=== PATIENT | male | born 1980 | race Caucasian/White ===

== ENCOUNTER 2023-08-08 11:21 | Emergency (ER) | payer MEDICARE, MEDICAID, SELFPAY ==
[2023-08-08 11:27] VITALS: BP 109/69; PULSE 110; RESP 22; TEMP 36.3; O2SAT 95
--- NOTE | 2023-08-08 11:30 | ED_ITS ---
HPI - General Adult General Chief complaint: Upper Respiratory Infection Stated complaint: SHORTNESS OF BREATH Time Seen by Provider: 08/08/23 11:30 Source: patient and caregiver Mode of arrival: walk-in History of Present Illness HPI narrative: This is a 43-year-old male special-needs patient here with his caregiver from his facility for evaluation of cough runny nose not feeling good. He's not had vomiting and diarrhea. He lives in a retirement and his lab been a lot of viral illnesses there according to the caregiver. They just don't think he is acting himself. They don't know if he is running a fever. It is notany skin rashes. They said he was up coughing a lot last night. To the caregiver's knowledge she's not had Covid previously. Related Data Home Medications Medication Instructions Recorded Confirmed acetaminophen 325 mg tablet 650 mg PO Q6H PRN fever or pain 08/08/23 08/08/23 bisacodyl 10 mg rectal suppository 10 mg MT DAILY PRN constipation 08/08/23 08/08/23 cetirizine 10 mg tablet 10 mg PO DAILY 08/08/23 08/08/23 cholecalciferol (vitamin D3) 50 2,000 unit PO DAILY 08/08/23 08/08/23 mcg (2,000 unit) capsule (D3-2000) furosemide 20 mg tablet 20 mg PO DAILY 08/08/23 08/08/23 lactulose 10 gram/15 mL oral 30 ml PO BID 08/08/23 08/08/23 solution levothyroxine 125 mcg tablet 125 mcg PO DAILY 08/08/23 08/08/23 oxcarbazepine 300 mg tablet 300 mg PO BID 08/08/23 08/08/23 pantoprazole 40 mg tablet,delayed 40 mg PO DAILY 08/08/23 08/08/23 release quetiapine 200 mg tablet 200 mg PO BID 08/08/23 08/08/23 quetiapine 400 mg tablet 400 mg PO DAILY 08/08/23 08/08/23 risperidone 0.5 mg tablet 0.5 mg PO DAILY 08/08/23 08/08/23 risperidone 1 mg tablet 1 mg PO TID 08/08/23 08/08/23 Allergies Allergy/AdvReac Type Severity Reaction Status Date / Time No Known Drug Allergies Allergy Verified 08/08/23 11:46 Exam Narrative Exam Narrative: got his with his caregiver.. His caregiver is the historian. Hegot very well. Constitutional his vital signs show mild tachycardia. He is afebrile. Blood pressure normal 109/69. His skin color is good he is warm and dry not pale or diaphoretic or clammy. Emanation extremity shows no soft tissue infection of skin ecchymosis or bruising. He doesn't seem to have any abdominal pain. There is clear runny nose otherwise HEENT examination is normal. His back and chest examination shows no retractions no severe cough or evidence of dyspnea. He was quite restless during examination with his MR. Medical Decision Making MDM Narrative Medical decision making narrative: patient's Covid test is negative. Chest x-ray shows no acute inflammatory or infectious process. However the urinalysis is consistent with a urine infection. His caregiver believes but does not have any specifics, that he's had urinary tract infection before advised that his provider at the facility consider urology evaluation if in fact he's had multiple urinary tract infections. At this time we'll start him on Rocephin parenterally one dose here and then Cipro. The caregiver says he's very good at taking medicines. He is instructed to return should he worsen. He is to take plenty of extra fluids Discharge Plan Discharge Chief Complaint: Upper Respiratory Infection Clinical Impression: Urinary tract infection Patient Disposition: Home, Self-Care Time of Disposition Decision: 13:26 Prescriptions / Home Meds: No Action bisacodyl 10 mg suppository 10 mg MT DAILY PRN (Reason: constipation) levothyroxine 125 mcg tablet 125 mcg PO DAILY furosemide 20 mg tablet 20 mg PO DAILY pantoprazole 40 mg tablet,delayed release (DR/EC) 40 mg PO DAILY cholecalciferol (vitamin D3) [D3-2000] 50 mcg (2,000 unit) capsule 2,000 unit PO DAILY risperidone 1 mg tablet 1 mg PO TID quetiapine 200 mg tablet 200 mg PO BID oxcarbazepine 300 mg tablet 300 mg PO BID risperidone 0.5 mg tablet 0.5 mg PO DAILY Rx Instructions: takes daily at noon cetirizine 10 mg tablet 10 mg PO DAILY quetiapine 400 mg tablet 400 mg PO DAILY Rx Instructions: takes at bedtime lactulose 10 gram/15 mL solution 30 ml PO BID acetaminophen 325 mg tablet 650 mg PO Q6H PRN (Reason: fever or pain) Additional Instructions: Cipro/take plenty of extra fluids. Recheck by provider within forty-eight seventy-two hours/return here for any problems Stand Alone Forms: Portal Instructions Referrals: FELIPA ESPAÑA [Primary Care Provider] - 1 week
--- NOTE | 2023-08-08 11:31 | XR_ITS ---
The [address] [address] Patient Name: RIGOBERTO BAKER MRN: [id number] date: 1980 Sex: M Assigned Patient Location: ER Current Patient Location: ED.MAIN Accession/Order Number: [id number] Exam Date: 08/08/2023 11:52 Report Date: 08/08/2023 13:13 At the request of: JASON CRUZ Procedure: XR chest 1V EXAM: XR chest 1V INDICATION: cough. COMPARISON: Chest radiograph 05/30/2020 TECHNIQUE: Single frontal view of the chest FINDINGS: Normal cardiomediastinal contours. Low lung volumes with crowding of the central pulmonary vasculature. No acute infiltrative process. Right lung. Surgical sutures noted. No pleural effusion or pneumothorax. Stable sclerotic lesion in the proximal right humerus. XR/XR chest 1V IMPRESSION: No acute cardiopulmonary process. Electronically authenticated by: ZAK IRENE Date: 08/08/2023 13:13
[2023-08-08 11:55] LABS: SARS-CoV-2 Ag NEGATIVE (NEGATIVE)
[2023-08-08 12:24] LABS: Bilirubin Urine NEGATIVE (NEGATIVE); Blood Urine NEGATIVE (NEGATIVE); Clarity Urine CLEAR (CLEAR); Color Urine LT. YELLOW (YELLOW); Glucose Urine UA NEGATIVE (NEGATIVE); Ketones Urine NEGATIVE (NEGATIVE); Leukocyte Esterase Urine LARGE (NEGATIVE); Nitrite Urine POSITIVE (NEGATIVE); Protein Urine NEGATIVE (NEG/TRACE); Specific Gravity Urine 1.015 (1.005-1.025); Urobilinogen Urine 0.2 EU/dL (0.2-1.0)
[2023-08-08 12:33] LABS: Bacteria Urine LARGE #/HPF (NONE SEEN); RBC Urine NONE SEEN #/HPF (0-2); WBC Urine 20-50 #/HPF (NONE SEEN)
[2023-08-08 12:34] LABS: Mucus Urine NONE SEEN (NONE SEEN); Squamous Epithelial Cell Urine FEW #/LPF (NONE/RARE)
[2023-08-08] MEDS: CEFTRIAXONE 1,000 MG, LIDOCAINE HCL/PF 2.1 ML IM (13:47)
[2023-08-09 15:07] LABS: SARS-CoV-2 NAA NOT DETECTED (NOT DETECTE)
== END 2023-08-08 14:04 | disposition home or self-care (01) ==
PROVIDERS: Emergency Provider Emergency Medicine Emergency Medical Services; PCP Nurse Practitioner
DX: N39.0 Urinary tract infection, site not specified (principal); Z20.822 Contact with and (suspected) exposure to COVID-19; Z79.899 Other long term (current) drug therapy; Z79.890 Hormone replacement therapy
CPT/HCPCS: 71045; 81001; 87635; 87811; 96372; 99285

== ENCOUNTER 2023-09-15 18:17 | Emergency (ER) | payer MEDICARE, MEDICAID, SELFPAY ==
[2023-09-15 18:22] VITALS: BP 107/53; PULSE 85; RESP 24; TEMP 36.9; O2SAT 100
--- NOTE | 2023-09-15 19:37 | ED_ITS ---
HPI - Male Genitourinary General Chief complaint: Urogenital-Male Stated complaint: UTI BLOOD Time Seen by Provider: 09/15/23 18:55 Source: patient Mode of arrival: walk-in Limitations: language barrier History of Present Illness HPI Narrative: Patient is a 43-year-old male who presents to the emergency department with his caregiver for the evaluation of hematuria. Patient has Down syndrome. He has had 2 previous urinary tract infections this year. He wears a depends chronically. He is nonverbal. He has not had any fevers or vomiting. Caregiver noted that he passed a small piece of red tissue that he believed was a blood clot, although the staff at his senior living thought it may be a small kidney stone. Related Data Home Medications Medication Instructions Recorded Confirmed acetaminophen 325 mg tablet 650 mg PO Q6H PRN fever or pain 08/08/23 08/08/23 bisacodyl 10 mg rectal suppository 10 mg IA DAILY PRN constipation 08/08/23 08/08/23 cetirizine 10 mg tablet 10 mg PO DAILY 08/08/23 08/08/23 cholecalciferol (vitamin D3) 50 2,000 unit PO DAILY 08/08/23 08/08/23 mcg (2,000 unit) capsule (D3-2000) furosemide 20 mg tablet 20 mg PO DAILY 08/08/23 08/08/23 lactulose 10 gram/15 mL oral 30 ml PO BID 08/08/23 08/08/23 solution levothyroxine 125 mcg tablet 125 mcg PO DAILY 08/08/23 08/08/23 oxcarbazepine 300 mg tablet 300 mg PO BID 08/08/23 08/08/23 pantoprazole 40 mg tablet,delayed 40 mg PO DAILY 08/08/23 08/08/23 release quetiapine 200 mg tablet 200 mg PO BID 08/08/23 08/08/23 quetiapine 400 mg tablet 400 mg PO DAILY 08/08/23 08/08/23 risperidone 0.5 mg tablet 0.5 mg PO DAILY 08/08/23 08/08/23 risperidone 1 mg tablet 1 mg PO TID 08/08/23 08/08/23 Previous Rx's Medication Instructions Recorded cephalexin 500 mg capsule 500 mg PO Q8H 7 days #21 caps 09/15/23 Allergies Allergy/AdvReac Type Severity Reaction Status Date / Time No Known Drug Allergies Allergy Verified 08/08/23 11:46 Review of Systems ROS Constitutional Denies: fever or chills Ears, nose, mouth, and throat Denies: throat pain Cardiovascular Denies: chest pain Respiratory Denies: shortness of breath or cough Gastrointestinal Denies: abdominal pain, nausea or vomiting Genitourinary Reports: painful urination and blood in urine Integumentary/Breast Denies: rash Allergic/Immunologic Denies: hives PFSH [facility] Social History Smoking status: Never smoker Exam Narrative Exam Narrative: Gen.: Awake, alert, in no distress Head: Normocephalic, atraumatic ENT: Moist mucous membranes Respiratory: No respiratory distress Gastrointestinal: Abdomen is soft, nondistended and nontender to palpation Extremities: Moves extremities equally Psych: Normal mood and affect, developmentally disabled, nonverbal Neuro: No focal neuro deficit Skin: Warm, dry, intact Constitutional Vital Signs, click to edit/add: Last Vital Signs Temp 98.5 F 09/15/23 18:22 Pulse 85 09/15/23 18:22 Resp 24 09/15/23 18:22 BP 107/53 09/15/23 18:22 Pulse Ox 100 09/15/23 18:22 O2 Del Method Room Air 09/15/23 18:22 Course Vital Signs Vital signs: Vital Signs Temperature 98.5 F 09/15/23 18:22 Pulse Rate 85 09/15/23 18:22 Respiratory Rate 24 09/15/23 18:22 Blood Pressure 107/53 09/15/23 18:22 Pulse Oximetry 100 09/15/23 18:22 Oxygen Delivery Method Room Air 09/15/23 18:22 Temperature 98.5 F 09/15/23 18:22 Pulse Rate 85 09/15/23 18:22 Respiratory Rate 24 09/15/23 18:22 Blood Pressure 107/53 09/15/23 18:22 Pulse Oximetry 100 09/15/23 18:22 Oxygen Delivery Method Room Air 09/15/23 18:22 MDM - Male Genitourinary MDM Narrative Medical decision making narrative: Straight catheterization was attempted, we were unable to get urine with this so a urine bag was applied, urine specimen shows urinary tract infection and labs are within normal limits. Patient with stable vital signs. Leather Repairer was made aware that even if the patient did pass a small kidney stone, he is lab studies are within normal limits with no evidence of acute renal failure. He is treated for UTI, referred to urology. Return to the ER if symptoms change or worsen. Leather Repairer is in agreement with treatment plan. Medical Records Attestation: I reviewed the patient's medical records. Lab Data Attestation: I reviewed the patient's lab results. Labs: Lab Results 09/15/23 09/15/23 Range/Units 20:11 21:09 WBC 7.4 (4.0-11.0) 10^3/uL RBC 3.95 L (4.70-6.10) 10^6/uL Hgb 13.3 L (14.0-18.0) g/dL Hct 39.2 L (42.0-54.0) % MCV 99.2 H (80.0-94.0) fL MCH 33.7 (25.9-34.0) pg MCHC 33.9 (29.9-35.2) g/dL RDW 12.7 (11.0-15.0) % Plt Count 306 (150-450) 10^3/uL MPV 8.3 L (9.5-13.5) fL Neut % (Auto) 69.6 (43.0-75.0) % Lymph % (Auto) 20.7 (20.5-60.0) % [place] % (Auto) 6.9 (1.7-12.0) % Eos % (Auto) 1.5 (0.9-7.0) % Baso % (Auto) 0.9 (0.2-2.0) % Neut # (Auto) 5.1 (1.4-6.5) 10^3/uL Lymph # (Auto) 1.5 (1.2-3.8) 10^3/uL [place] # (Auto) 0.5 (0.3-0.8) 10^3/uL Eos # (Auto) 0.1 (0.0-0.7) 10^3/uL Baso # (Auto) 0.1 (0.0-0.1) 10^3/uL Abs Immat Gran (auto) 0.03 (0.00-0.03) 10^3/uL Imm/Tot Granulo (auto) 0.4 (0.0-0.5) % Sodium 133 L (136-145) mmol/L Potassium 3.9 (3.5-5.1) mmol/L Chloride 96 L (98-107) mmol/L Carbon Dioxide 31.4 (21.0-32.0) mmol/L Anion Gap 9.5 BUN 12.0 (7.0-18.0) mg/dL Creatinine 0.82 (0.70-1.30) mg/dL Est GFR ( Amer) >60 (>=60) Est GFR (Non-Af Amer) >60 (>=60) BUN/Creatinine Ratio 14.6 Glucose 134 H (74-106) mg/dL Calcium 8.7 (8.5-10.1) mg/dL Total Bilirubin 0.2 (0.2-1.0) mg/dL AST 16 (15-37) U/L ALT 11 L (16-63) U/L Alkaline Phosphatase 131 H (46-116) U/L Total Protein 7.2 (6.4-8.2) g/dL Albumin 3.4 (3.4-5.0) g/dL Globulin 3.8 g/dL Albumin/Globulin Ratio 0.9 Urine Color Dk. red (YELLOW) Urine Clarity Clear (CLEAR) Urine pH 7.5 (5.0-9.0) Ur Specific Manning 1.020 (1.005-1.025) Urine Protein >=300 A (NEG/TRACE) mg/dL Urine Glucose (UA) 100 A (NEGATIVE) mg/dL Urine Ketones Trace A (NEGATIVE) mg/dL Urine Occult Blood Large A (NEGATIVE) Urine Nitrite Positive A (NEGATIVE) Urine Bilirubin Negative (NEGATIVE) Urine Urobilinogen 1.0 (0.2-1.0) EU/dL Ur Leukocyte Esterase Small A (NEGATIVE) Urine RBC >100 A (0-2) #/HPF Urine WBC 10-20 A (NONE SEEN) #/HPF Ur Squamous Epith Cells None seen (NONE/RARE) #/LPF Urine Crystals None seen (None Seen) #/HPF Urine Bacteria Moderate A (NONE SEEN) #/HPF Urine Casts None seen (NONE SEEN) #/LPF Urine Mucus None seen (NONE SEEN) Ur Culture Indicated? Yes Discharge Plan Discharge Chief Complaint: Urogenital-Male Clinical Impression: Urinary tract infection Patient Disposition: Home, Self-Care Time of Disposition Decision: 21:29 Condition: Good Prescriptions / Home Meds: New cephalexin 500 mg capsule 500 mg PO Q8H 7 Days Qty: 21 0RF No Action bisacodyl 10 mg suppository 10 mg IA DAILY PRN (Reason: constipation) levothyroxine 125 mcg tablet 125 mcg PO DAILY furosemide 20 mg tablet 20 mg PO DAILY pantoprazole 40 mg tablet,delayed release (DR/EC) 40 mg PO DAILY cholecalciferol (vitamin D3) [D3-2000] 50 mcg (2,000 unit) capsule 2,000 unit PO DAILY risperidone 1 mg tablet 1 mg PO TID quetiapine 200 mg tablet 200 mg PO BID oxcarbazepine 300 mg tablet 300 mg PO BID risperidone 0.5 mg tablet 0.5 mg PO DAILY Rx Instructions: takes daily at noon cetirizine 10 mg tablet 10 mg PO DAILY quetiapine 400 mg tablet 400 mg PO DAILY Rx Instructions: takes at bedtime lactulose 10 gram/15 mL solution 30 ml PO BID acetaminophen 325 mg tablet 650 mg PO Q6H PRN (Reason: fever or pain) Instructions: Urinary Tract Infection in Men (ED) Stand Alone Forms: Portal Instructions Referrals: Selvin Sorensen MD [Physician] - 1 week FELIPA ESPAÑA [Primary Care Provider] - 1 week Discharge Date/Time: 09/15/23 21:55
[2023-09-15 20:20] LABS: Basophils Absolute Auto 0.1 10^3/uL (0.0-0.1); Basophils Percent Auto 0.9 % (0.2-2.0); Eosinophils Absolute Auto 0.1 10^3/uL (0.0-0.7); Eosinophils Percent Auto 1.5 % (0.9-7.0); Hematocrit 39.2 % (42.0-54.0); Hemoglobin 13.3 g/dL (14.0-18.0); Immature Granulocytes Abs Auto 0.03 10^3/uL (0.00-0.03); Immature Granulocytes Pct Auto 0.4 % (0.0-0.5); Lymphocytes Absolute Auto 1.5 10^3/uL (1.2-3.8); Lymphocytes Percent Auto 20.7 % (20.5-60.0); Mean Corpuscular HGB Conc 33.9 g/dL (29.9-35.2); Mean Corpuscular Hemoglobin 33.7 pg (25.9-34.0); Mean Corpuscular Volume 99.2 fL (80.0-94.0); Mean Platelet Volume 8.3 fL (9.5-13.5); Monocytes Absolute Auto 0.5 10^3/uL (0.3-0.8); Monocytes Percent Auto 6.9 % (1.7-12.0); Neutrophils Absolute Auto 5.1 10^3/uL (1.4-6.5); Neutrophils Percent Auto 69.6 % (43.0-75.0); Platelet Count 306 10^3/uL (150-450); Red Blood Count 3.95 10^6/uL (4.70-6.10); Red Cell Distribution Width 12.7 % (11.0-15.0); White Blood Count 7.4 10^3/uL (4.0-11.0)
[2023-09-15 20:31] LABS: Alanine Aminotransferase 11 U/L (16-63); Albumin Globulin Ratio 0.9; Albumin Level 3.4 g/dL (3.4-5.0); Alkaline Phosphatase 131 U/L (46-116); Anion Gap 9.5; Aspartate Amino Transferase 16 U/L (15-37); BUN Creatinine Ratio 14.6; Bilirubin Total 0.2 mg/dL (0.2-1.0); Calcium 8.7 mg/dL (8.5-10.1); Carbon Dioxide 31.4 mmol/L (21.0-32.0); Chloride 96 mmol/L (98-107); Estimated GFR (African America >60 (>=60); Estimated GFR (Non-African Ame >60 (>=60); Globulin 3.8 g/dL; Glucose 134 mg/dL (74-106); Potassium 3.9 mmol/L (3.5-5.1); Sodium 133 mmol/L (136-145); Total Protein 7.2 g/dL (6.4-8.2)
[2023-09-15 21:25] LABS: Bilirubin Urine NEGATIVE (NEGATIVE); Blood Urine LARGE (NEGATIVE); Clarity Urine CLEAR (CLEAR); Color Urine DK. RED (YELLOW); Glucose Urine UA 100 mg/dL (NEGATIVE); Ketones Urine TRACE mg/dL (NEGATIVE); Leukocyte Esterase Urine SMALL (NEGATIVE); Nitrite Urine POSITIVE (NEGATIVE); Protein Urine >=300 mg/dL (NEG/TRACE); pH Urine 7.5 (5.0-9.0)
[2023-09-15 21:26] LABS: Urine Microscopic Indicated YES
[2023-09-15 21:27] LABS: Bacteria Urine MODERATE #/HPF (NONE SEEN); Cast Seen? NONE SEEN #/LPF (NONE SEEN); Crystals Seen? None Seen #/HPF (None Seen); Mucus Urine NONE SEEN (NONE SEEN); RBC Urine >100 #/HPF (0-2); Squamous Epithelial Cell Urine NONE SEEN #/LPF (NONE/RARE); Urine Culture Indicated YES
[2023-09-15] MEDS: CEPHALEXIN 500 MG CAPSULE PO (21:37)
== END 2023-09-15 21:55 | disposition home or self-care (01) ==
PROVIDERS: Physician Assistant; Emergency Provider Internal Medicine; PCP Nurse Practitioner
DX: N39.0 Urinary tract infection, site not specified (principal); Q90.9 Down syndrome, unspecified; Z87.440 Personal history of urinary (tract) infections; Z79.899 Other long term (current) drug therapy
CPT/HCPCS: 36415; 80053; 81001; 85025; 87086; 99283

== ENCOUNTER 2024-03-24 16:40 | Outpatient (OUT) | payer MEDICARE, MEDICAID, SELFPAY ==
[2024-03-26 09:10] LABS: Carbamazepine(Tegretol),S 7.1 ug/mL (4.0-12.0)
[2024-03-30 00:07] LABS: Oxcarbazepine (Trileptal),S 13 ug/mL (10-35)
== END 2024-03-24 16:41 | disposition home or self-care (01) ==
LOC: LAB 16:41
PROVIDERS: PCP Nurse Practitioner; Visit Provider Nurse Practitioner Family
DX: Z51.81 Encounter for therapeutic drug level monitoring (principal)
CPT/HCPCS: 36415; 80156; 80183

== ENCOUNTER 2025-05-24 09:28 | Outpatient (OUT) | payer MEDICARE, MEDICAID, SELFPAY ==
--- OUTSIDE RECORDS SUMMARY | 2025-05-24 09:39 | XMS_ITS | Encounter Summary ---
Author Organization [employer] Sys tem Address [facility] [id number] [address] [place] [address] Care Team Providers Care Web Site Designer Name Role Phone Jyotsna Sewell APRN-WATER POLLUTION SCIENTIST Primary Care Provid er Encounter Details Date Type Department Care Team (Late st Contact Info) Description 05/16/2021 Telephone [facility] [address] [place] [address] [address] Marlene Do CMA Social History Tobacco Use Types Packs/Day Years Used Date Smoking Tobacco: Never Smokeless Tobacco: Never Alcohol Use Standard Drinks/Week Comments Never 0 (1 standard drink = 0.6 oz pur e alcohol) PHQ-2 Answer Date Recorded Total Score 0 05/09/2021 Childcare Answer Date Recorded Childcare Unknown 04/06/2019 Employment Answer Date Recorded Employment Unknown 04/06/2019 Purpose - Life Answer Date Recorded Purpose and direction in life Unknown Sex and Gender Information Value Date Recorded Sex Assigned at Not on file Legal Sex Male 11:26 AM EDT Gender Identity Not on file Sexual Orientation Not on file COVID-19 Exposure Response Date Recorded In the last month, have you been in contact with someone who was confirmed or suspected to have Coronavirus / COVID-19? No / Unsure 05/09/2021 9:03 AM EDT documented as of this encounter Miscellaneous Notes * Telephone Encounter - Marlene Do CMA - 05/16/2021 11:09 AM EDT Pt's caregiver had gian from [email or web address] call, the patient takes a laxative every other day, but has not had a bowel movement in the last 10 to 12 days. Pt uses [facility] in [place]. * Telephone Encounter - MADIHA Orr - 05/16/2021 11:09 AM EDT Please confirm with staff that they are keeping daily log on BMs. Do they think they would be able to do a fleet enema and rectal suppository? Inform to increase Mirlax to 17 grams (1 packet or one scoop) to daily, every AM. * Telephone Encounter - Marlene Do CMA - 05/16/2021 11:09 AM EDT They said yes, but they will need a letter or physical order faxed over to them for documentation. Please send RX for enema and suppository to [facility] in [place]. * Telephone Encounter - MADIHA Orr - 05/16/2021 11:09 AM EDT I faxed order and sent to [place] [facility]. Can you call and clarify if he is taking Lactulose. If sowhat is the dose, frequency. Is it daily or PRN? I have several conflicting orders on MAR, previousmedical records, and GI specialist documentation * Telephone Encounter - Marlene Do CMA - 05/16/2021 11:09 AM EDT Spoke to Shivani, she said they did get orders, but you did not put on there to do Miralax once daily,so they need that sent as well. Pt is not on lactulose. Only the powder. * Telephone Encounter - MADIHA Orr - 05/16/2021 11:09 AM EDT I hand wrote on prescription with other orders. I attached Birgit. The fax was not answering, I putthe fax report and copy of the written order on her desk. I will check again on Thursday to make sureeverything was taken care of. Thank you. * Telephone Encounter - Birgit Vickers MA - 05/16/2021 11:09 AM EDT I refaxed this on Thursday when I was here. * Telephone Encounter - MADIHA Orr - 05/16/2021 11:09 AM EDT Thank you. Just clarifying into response Marlene message documented in this encounter Plan of Treatment Upcoming Encounters Date Type Department Care Team (Late st Contact Info) Description 09/13/2025 4:00 PM EST Office Visit [facility] [address] [place] [address] Solomon Ramirez, TEO-WATER POLLUTION SCIENTIST [address] [place] [address] documented as of this encounter Visit Diagnoses Not on filedocumented in this encounter Additional Health Concerns Infection Onset Date Last Indicated Resolved Time COVID-19 Positive 07/31/2021 07/31/2021 08/21/2021 11:12 PM EDT COVID-19 Rule-Out 08/02/2021 07/31/2021 08/02/2021 11:31 AM EDT Assessment Noted Time PHQ-9 Depression Total Score: 0 05/09/20 9:07 AM EDT A Body Mass Index follow-up plan has been documented for the patient 05/15/2021 3:29 PM EDT documented as of this encounter Care Teams Web Site Designer Relationship Specialty Start Date End Date Jyotsna Sewell APRN-WATER POLLUTION SCIENTIST PCP - General Family Medicine 04/09/21 documented as of this encounter
--- OUTSIDE RECORDS SUMMARY | 2025-05-24 09:39 | XMS_ITS | Encounter Summary ---
Author Organization [employer] Sys tem Address [facility] [id number] [address] [place] [address] Care Team Providers Care Velvet Cutter Name Role Phone Sewell, Jyotsna mIani BRUCE-ENERGY PROJECTS LEAD Primary Care Provid er Encounter Details Date Type Department Care Team (Late Contact Info) Description 08/02/2021 Orders Only [facility] [address] [place] [address] [address] Marlene Do CMA Close exposure to COVID-19 virus Social History Tobacco Use Types Packs/Day Years Used Date Smoking Tobacco: Never Smokeless Tobacco: Never Alcohol Use Standard Drinks/Week Comments Never 0 (1 standard drink = 0.6 oz pur e alcohol) PHQ-2 Answer Date Recorded Total Score 0 07/10/2021 Childcare Answer Date Recorded Childcare Unknown 04/06/2019 [...] or suspected to have Coronavirus / COVID-19? Unable to assess 07/30/2021 9:39 AM EDT documented as of this encounter Plan of Treatment Upcoming Encounters Date Type Department Care Team (Late Contact Info) Description 09/13/2025 4:00 PM EST Office Visit [facility] [address] [place] [address] Solomon Ramirez, SUBGRADE ROLLER OPERATOR-ENERGY PROJECTS LEAD [address] [place] [address] documented as of this encounter Procedures Procedure Name Priority Date/Time Associated Diagnosis Comments SARS COV 2 (COVID-19) STAT 07/31/2021 Close exposure to COVID-19 virus documented in this encounter Results * (ABNORMAL) SARS COV 2 (COVID-19)[Lab Collect] (07/31/2021) EXTERNAL SARS COV 2 Positive(A ) Negative SUNQUEST Swab (NASOPHARYNGEAL ) 07/31/2021 us Jyotsna CLEARY MICROBIOLOGY - GENER AL ORDERABLES Edited Result - Final SUNQUEST documented in this encounter Visit Diagnoses Diagnosis Close exposure to COVID-19 virus documented in this encounter Additional Health Concerns Infection Onset Date Last Indicated Resolved Time COVID-19 Positive 07/31/2021 07/31/2021 08/21/2021 11:12 PM EDT COVID-19 Rule-Out 08/02/2021 07/31/2021 08/02/2021 11:31 AM EDT Assessment Noted Time PHQ-9 Depression Total Score: 0 07/10/20 21 9:10 AM EDT A Body Mass Index follow-up plan has been documented for the patient 08/05/2021 5:58 PM EDT documented as of this encounter Care Teams Velvet Cutter Relationship Specialty Start Date End Date Jyotsna Sewell APRN-CNP PCP - General Family Medicine 04/09/21 documented as of this encounter
--- OUTSIDE RECORDS SUMMARY | 2025-05-24 09:39 | XMS_ITS | Encounter Summary ---
Author Organization [employer] Address [facility] [id number] [address] [place] [address] Care Team Providers Care Gate Tender Name Role Phone Jyotsna Sewell APRN-LOCAL DELIVERY DRIVER Primary Care Provid er Reason for Visit * Reason Onset Date Comments Med Refill 03/22/2025 Encounter Details Date Type Department Care Team (Late st Contact Info) Description 03/22/2025 Refill [facility] [address] [place] [id number] Marah Franklin CMA Social History Tobacco Use Types Packs/Day Years Used Date Smoking Tobacco: Never Smokeless Tobacco: Never Alcohol Use Standard Drinks/Week Comments Never 0 (1 standard drink = 0.6 oz pur e alcohol) PHQ-2 Answer Date Recorded Total Score 0 01/05/2025 Childcare Answer Date Recorded Childcare Unknown 04/06/2019 Employment Answer Date Recorded Employment Unknown 04/06/2019 Hunger Screening Answer Date Recorded Within the past 12 months we worried whether our food would run out before we got money to buy more. Never True 01/05/2025 Within the past 12 months th e food we bought just didn't last and we didn't have money to get more. Never True 01/05/2025 Purpose - Life Answer Date Recorded Purpose and direction in life Unknown Sex and Gender Information Value Date Recorded Sex Assigned at Not on file Legal Sex Male 11:26 AM EDT Gender Identity Not on file Sexual Orientation Not on file documented as of this encounter Plan of Treatment Upcoming Encounters Date Type Department Care Team (Late st Contact Info) Description 09/13/2025 4:00 PM EST Office Visit [facility] [address] [place] [address] Solomon Ramirez, INDUCTION COORDINATION POWER ENGINEER-LOCAL DELIVERY DRIVER [address] [place] [address] documented as of this encounter Visit Diagnoses Not on filedocumented in this encounter Additional Health Concerns Assessment Noted Time PHQ-9 Depression Total Score: 0 01/06/20 25 8:33 AM EDT A Body Mass Index follow-up plan has been documented for the patient 01/05/2025 9:11 AM EDT documented as of this encounter Care Teams Gate Tender Relationship Specialty Start Date End Date Jyotsna Sewell, TEO-LOCAL DELIVERY DRIVER PCP - General Family Medicine 04/09/21 documented as of this encounter
--- OUTSIDE RECORDS SUMMARY | 2025-05-24 09:39 | XMS_ITS | Encounter Summary ---
Author Organization [employer] Sys tem Address [facility] [id number] [address] [place] [address] Care Team Providers Care Lumber Sorter Name Role Phone Jyotsna Sewell APRN-FIXED WING AIRCRAFT CREW CHIEF Primary Care Provid er Encounter Details Date Type Department Care Team (Late st Contact Info) Description 08/02/2021 Telephone [facility] [address] [facility] [place] [address] Marlene Do CMA Social History [...] Telephone Encounter - Marlene Do CMA - 08/02/2021 11:21 AM EDT Tej called over today to see if results were in, as many of the guardians were concerned. I spoke to lab at [facility], and he was positive. I notified staff at [facility], and they will bequarantining the residents for the next 7 to 14 days. documented in this encounter Plan of Treatment Upcoming Encounters Date Type Department Care Team (Late st Contact Info) Description 09/13/2025 4:00 PM EST Office Visit [facility] - Family Medicine [address] [place] [address] Solomon Ramirez, ROCK CRUSHING MACHINE OPERATOR-FIXED WING AIRCRAFT CREW CHIEF [address] , [facility] [address] [place] [address] documented as of this encounter Visit Diagnoses Not on filedocumented in this encounter Additional Health Concerns Infection Onset Date Last Indicated Resolved Time COVID-19 Positive 07/31/2021 07/31/2021 08/21/2021 11:12 PM EDT COVID-19 Rule-Out 08/02/2021 07/31/2021 08/02/2021 11:31 AM EDT Assessment Noted Time PHQ-9 Depression Total Score: 0 07/10/20 9:10 AM EDT A Body Mass Index follow-up plan has been documented for the patient 08/05/2021 5:58 PM EDT documented as of this encounter Care Teams Lumber Sorter Relationship Specialty Start Date End Date Jyotsna Sewell, ROCK CRUSHING MACHINE OPERATOR-FIXED WING AIRCRAFT CREW CHIEF PCP - General Family Medicine 04/09/21 documented as of this encounter
--- OUTSIDE RECORDS SUMMARY | 2025-05-24 09:39 | XMS_ITS | Encounter Summary ---
Author Organization [employer] Sys tem Address [facility] [id number] [address] [place] [address] Care Team Providers Care Content Engineer Name Role Phone Jyotsna Sewell APRN-MERCHANDISE EXECUTIVE Primary Care Provid er Reason for Visit * Reason Comments Med Refill Encounter Details Date Type Department Care Team (Late Contact Info) Description 05/18/2023 Refill [facility] - Family Medicine [address] [place] [address] Jyotsna Sewell APRN-MERCHANDISE EXECUTIVE [address] PM 04/24/25 [place] [phone] Chronic idiopathic constipation Social History Tobacco Use Types Packs/Day Years Used Date Smoking Tobacco: Never Smokeless Tobacco: Never Alcohol Use Standard Drinks/Week Comments Never 0 (1 standard drink = 0.6 oz pur e alcohol) PHQ-2 Answer Date Recorded Total Score 0 04/22/2023 Childcare Answer Date Recorded Childcare Unknown 04/06/2019 [...] Medicine - Family Medicine [address] [place] [address] Solomon Ramirez, SLIP SHEETER-MERCHANDISE EXECUTIVE [address], [address] [place] [address] documented as of this encounter Visit Diagnoses Diagnosis Chronic idiopathic constipation Unspecified constipation documented in this encounter Additional Health Concerns Assessment Noted Time PHQ-9 Depression Total Score: 0 04/22/20 11:44 AM EDT A Body Mass Index follow-up plan has been documented for the patient 04/23/2023 8:43 AM EDT documented as of this encounter Care Teams Content Engineer Relationship Specialty Start Date End Date Jyotsna Sewell, TEO-MERCHANDISE EXECUTIVE PCP - General Family Medicine 04/09/21 documented as of this encounter
--- OUTSIDE RECORDS SUMMARY | 2025-05-24 09:39 | XMS_ITS | Encounter Summary ---
Author Organization [facility] Sys tem Address [facility] [id number] [address] [place] [address] Care Team Providers Care Storage Facility Housekeeper Name Role Phone Jyotsna Sewell Primary Care Provid er Encounter Details Date Type Department Care Team (Late st Contact Info) Description 08/06/2021 Telephone [facility] [address] [facility] [place] [address] Marlene Do CMA Social History [...] Telephone Encounter - Marlene Do CMA - 08/06/2021 10:18 AM EDT ----- Message from MADIHA Orr sent at 08/05/2021 5:58 PM EDT ----- Can you call care provider or Alexa (warehouse receiver- #listed in emergency contact), check on how patient is doing. * Telephone Encounter - Marlene Do CMA - 08/06/2021 10:18 AM EDT Pt has been sleeping and resting often, still has runny nose, but no other symptoms noted. * Telephone Encounter - MADIHA Orr - 08/06/2021 10:18 AM EDT Thank you * Telephone Encounter - Birgit Vickers MA - 08/06/2021 10:18 AM EDT Alexa called and said 94/ 73 right now Pulse 81, and said you wanted to be informed if below 100. * Telephone Encounter - MADIHA Orr - 08/06/2021 10:18 AM EDT Alexa is going to recheck and call the office around 4:30pm, will decide at that time if ER visit is warranted. documented in this encounter Plan of Treatment Upcoming Encounters Date Type Department Care Team (Late st Contact Info) Description 09/13/2025 4:00 PM EST Office Visit [facility] - Family Medicine [address] [place] [address] Solomon Ramirez, RPG DEVELOPER-PACKAGE LINE OPERATOR [address], [place] [id number] documented as of this encounter Visit Diagnoses Not on filedocumented in this encounter Additional Health Concerns Infection Onset Date Last Indicated Resolved Time COVID-19 Positive 07/31/2021 07/31/2021 08/21/2021 11:12 PM EDT Assessment Noted Time PHQ-9 Depression Total Score: 0 07/10/20 9:10 AM EDT A Body Mass Index follow-up plan has been documented for the patient 08/05/2021 5:58 PM EDT documented as of this encounter Care Teams Storage Facility Housekeeper Relationship Specialty Start Date End Date Jyotsna Sewell, RPG DEVELOPER-PACKAGE LINE OPERATOR PCP - General Family Medicine 04/09/21 documented as of this encounter
--- OUTSIDE RECORDS SUMMARY | 2025-05-24 09:39 | XMS_ITS | Encounter Summary ---
Author Organization [employer] Sys tem Address [facility] [id number] [address] [place] [address] Care Team Providers Care Rotary Engraver Name Role Phone Jyotsna Sewell APRN-GRIPPER MACHINE OPERATOR Primary Care Provid er Encounter Details Date Type Department Care Team (Late Contact Info) Description 12/16/2021 Orders Only [facility] [address] [facility] [place] [phone] Marlene Do, ERNESTO Other generalized epilepsy, not intractable, without status epilepticus ([facility]-H[facility]); Down's syndrome Social History Tobacco Use Types Packs/Day Years [...] have Coronavirus / COVID-19? No / Unsure 12/18/2021 4:40 PM EST documented as of this encounter Plan of Treatment Upcoming Encounters Date Type Department Care Team (Late Contact Info) Description 09/13/2025 4:00 PM EST Office Visit [facility] - Family Medicine [address] [place] [address] Solomon Ramirez, TEO-GRIPPER MACHINE OPERATOR [address], [address] [place] [address] documented as of this encounter Procedures Procedure Name Priority Date/Time Associated Diagnosis Comments AMB REFERRAL TO NEUROLOGY Routine 12/16/2021 11:07 AM EST Other generalized epilepsy, not intractable, without status epilepticus (CMS-HCC) Down's syndrome documented in this encounter Results * Ambulatory referral to Neurology (12/16/2021 11:07 AM EST) us Jyotsna CLEARY OUTPATIENT REFERRAL ORDERABLES Final Result MANUALLY TRANSCRIBED RESULTS documented in this encounter Visit Diagnoses Diagnosis Other generalized epilepsy, not intractable, without status epilepticus (CMS-HCC) Down's syndrome documented in this encounter Additional Health Concerns Assessment Noted Time PHQ-9 Depression Total Score: 0 07/10/20 9:10 AM EDT A Body Mass Index follow-up plan has been documented for the patient 12/02/2021 7:46 PM EST documented as of this encounter Care Teams Rotary Engraver Relationship Specialty Start Date End Date Jyotsna Sewell APRN-CNP PCP - General Family Medicine 04/09/21 documented as of this encounter
--- OUTSIDE RECORDS SUMMARY | 2025-05-24 09:39 | XMS_ITS | Encounter Summary ---
Author Organization [employer] Sys tem Address [id number] [address] [place] [address] Care Team Providers Care Trenching Machine Operator Name Role Phone Jyotsna Sewell APRN-COMMUNITY ACTION WORKER Primary Care Provid er Reason for Visit * Reason Comments Med Refill Encounter Details Date Type Department Care Team (Late Contact Info) Description 06/22/2023 Refill [facility] [address] [place] [address] Jyotsna Sewell APRN-COMMUNITY ACTION WORKER [address] 04/24/25 [place] [address] Drug-induced constipation Social History Tobacco Use Types Packs/Day [...] Medicine - Family Medicine [address] [place] [address] Solomon Ramirez, YARDING SUPERVISOR-COMMUNITY ACTION WORKER [address], [address] [place] [address] documented as of this encounter Visit Diagnoses Diagnosis Drug-induced constipation Other constipation documented in this encounter Additional Health Concerns Assessment Noted Time PHQ-9 Depression Total Score: 0 04/22/20 11:44 AM EDT A Body Mass Index follow-up plan has been documented for the patient 04/23/2023 8:43 AM EDT documented as of this encounter Care Teams Trenching Machine Operator Relationship Specialty Start Date End Date Jyotsna Sewell, TEO-COMMUNITY ACTION WORKER PCP - General Family Medicine 04/09/21 documented as of this encounter
--- OUTSIDE RECORDS SUMMARY | 2025-05-24 09:39 | XMS_ITS | Encounter Summary ---
Author Organization [employer] Sys tem Address [facility] [id number] [address] [place] [address] Care Team Providers Care Melter Loader Name Role Phone Jyotsna Sewell Primary Care Provid er Encounter Details Date Type Department Care Team (Late st Contact Info) Description 08/13/2023 Telephone [facility] - Family Medicine [address] [place] [address] Birgit Vickers MA Social History Tobacco Use Types Packs/Day Years Used Date Smoking Tobacco: Never Smokeless Tobacco: Never Alcohol Use Standard Drinks/Week Comments Never 0 (1 standard drink = 0.6 oz pur e alcohol) PHQ-2 Answer Date Recorded Total Score 0 08/13/2023 Childcare Answer Date Recorded Childcare Unknown 04/06/2019 Employment Answer Date Recorded Employment Unknown 04/06/2019 Purpose - Life Answer Date Recorded Purpose and direction in life Unknown Sex and Gender Information Value Date Recorded Sex Assigned at Not on file Legal Sex Male 11:26 AM EDT Gender Identity Not on file Sexual Orientation Not on file documented as of this encounter Miscellaneous Notes * Telephone Encounter - Birgit Vickers MA - 08/13/2023 11:39 AM EDT ----- Message from MADIHA Orr sent at 08/13/2023 11:37 AM EDT ----- He went to [facility] last week. I do not have records. Can we retrieve. documented in this encounter Plan of Treatment Upcoming Encounters Date Type Department Care Team (Late st Contact Info) Description 09/13/2025 4:00 PM EST Office Visit [facility] - Family Medicine [address] [place] [address] Solomon Ramirez, ACOUSTICAL TILE PATTERNMAKER-GROUP SALES COORDINATOR [address], [facility] [address] [place] [address] documented as of this encounter Visit Diagnoses Not on filedocumented in this encounter Additional Health Concerns Assessment Noted Time PHQ-9 Depression Total Score: 0 08/13/20 23 11:07 AM EDT A Body Mass Index follow-up plan has been documented for the patient 08/13/2023 12:46 PM EDT documented as of this encounter Care Teams Melter Loader Relationship Specialty Start Date End Date Jyotsna Sewell, ACOUSTICAL TILE PATTERNMAKER-GROUP SALES COORDINATOR PCP - General Family Medicine 04/09/21 documented as of this encounter
--- OUTSIDE RECORDS SUMMARY | 2025-05-24 09:39 | XMS_ITS | Encounter Summary ---
Author Organization [employer] Sys tem Address [id number] [address] [place] [address] Care Team Providers Care Emergency Nurse Name Role Phone Jyotsna Sewell APRN-PROCESS OWNER Primary Care Provid er Reason for Visit * Reason Comments Med Refill Encounter Details Date Type Department Care Team (Late Contact Info) Description 05/06/2023 Refill [facility] - Family Medicine [address] [place] [address] Jyotsna Sewell APRN-PROCESS OWNER [address] PM 04/24/25 [place] [address] Chronic idiopathic constipation Social History Tobacco Use [...] - Family Medicine [address] [place] [address] Solomon Ramirez, ACCOUNT GENERAL MANAGER-PROCESS OWNER [address], [address] [place] [address] documented as of this encounter Visit Diagnoses Diagnosis Chronic idiopathic constipation Unspecified constipation documented in this encounter Additional Health Concerns Assessment Noted Time PHQ-9 Depression Total Score: 0 04/22/20 11:44 AM EDT A Body Mass Index follow-up plan has been documented for the patient 04/23/2023 8:43 AM EDT documented as of this encounter Care Teams Emergency Nurse Relationship Specialty Start Date End Date Jyotsna Sewell, TEO-PROCESS OWNER PCP - General Family Medicine 04/09/21 documented as of this encounter
--- OUTSIDE RECORDS SUMMARY | 2025-05-24 09:39 | XMS_ITS | Encounter Summary ---
Author Organization [employer] Sys tem Address [facility] [id number] [address] [place] [address] Care Team Providers Care Social Media Senior Associate Name Role Phone Jyotsna Sewell APRN-AUTO TRANSMISSION SPECIALIST Primary Care Provid er Encounter Details Date Type Department Care Team (Late st Contact Info) Description 11/26/2021 Telephone [facility] [address] [facility] [place] [address] Birgit Vickers MA Social History [...] have Coronavirus / COVID-19? No / Unsure 11/20/2021 4:41 PM EST documented as of this encounter Miscellaneous Notes * Telephone Encounter - Birgit Vickers MA - 11/26/2021 4:50 PM EST I had a question for you. On Prince's consult we picked up it shows that Radha wants to increase his levothyroxine to 125 mcg. She dated it 11-20-21 but [facility] doesn't have any order for it? Did she send it someplace else? Can we get something from her to say start when med is received? Yessica Delacruz DSPS - [employer] * Telephone Encounter - MADIHA Orr - 11/26/2021 4:50 PM EST Was sent to [facility] in [place], supply to get started. I wasn't sure how long the wait was for [facility]. I put a yellow sticki note alerting documented in this encounter Plan of Treatment Upcoming Encounters Date Type Department Care Team (Late st Contact Info) Description 09/13/2025 4:00 PM EST Office Visit [facility] - Family Medicine [address] [place] [address] Solomon Ramirez, TEO-AUTO TRANSMISSION SPECIALIST [address], [place] [address] documented as of this encounter Visit Diagnoses Not on filedocumented in this encounter Additional Health Concerns Assessment Noted Time PHQ-9 Depression Total Score: 0 07/10/20 9:10 AM EDT A Body Mass Index follow-up plan has been documented for the patient 12/02/2021 7:46 PM EST documented as of this encounter Care Teams Social Media Senior Associate Relationship Specialty Start Date End Date Jyotsna Sewell APRN-CNP PCP - General Family Medicine 04/09/21 documented as of this encounter
--- OUTSIDE RECORDS SUMMARY | 2025-05-24 09:39 | XMS_ITS | Encounter Summary ---
Author Organization [employer] Sys tem Address [facility] [id number] [address] [place] [address] Care Team Providers Care Top Stop Attacher Name Role Phone Jyotsna Sewell APRN-FABRIC WORKER FITTER Primary Care Provid er Encounter Details Date Type Department Care Team (Late st Contact Info) Description 08/23/2021 Telephone [facility] [address] [facility] [place] [address] Birgit Vickers MA Social History [...] Telephone Encounter - Birgit Vickers MA - 08/23/2021 9:08 AM EDT As far as covid vaccines, see media,I attached impact report and updated immunizations. It's all onthere. * Telephone Encounter - MADIHA Orr - 08/23/2021 9:08 AM EDT I have looked COVID vaccines are not listed. harvesting manager was informed he did receive but there isno evidence or was provided a card when he moved to the home. She was informed was health department. Once we receive azebans consent to retrieve, [facility] * Telephone Encounter - Birgit Vickers MA - 08/23/2021 9:08 AM EDT Discussed with Radha, she didn't look in media and I showed her it was in there and that I [facility] documented in this encounter Plan of Treatment Upcoming Encounters Date Type Department Care Team (Late st Contact Info) Description 09/13/2025 4:00 PM EST Office Visit [facility] - Family Medicine [address] [place] [address] Solomon Ramirez, COMEDIAN-FABRIC WORKER FITTER [address], [facility] [address] [place] [id number] documented as of this encounter Visit Diagnoses Not on filedocumented in this encounter Additional Health Concerns Assessment Noted Time PHQ-9 Depression Total Score: 0 07/10/20 21 9:10 AM EDT A Body Mass Index follow-up plan has been documented for the patient 08/05/2021 5:58 PM EDT documented as of this encounter Care Teams Top Stop Attacher Relationship Specialty Start Date End Date Jyotsna Sewell APRN-CNP PCP - General Family Medicine 04/09/21 documented as of this encounter
--- OUTSIDE RECORDS SUMMARY | 2025-05-24 09:39 | XMS_ITS | Encounter Summary ---
Author Organization [employer] Sys tem Address [id number] [address] [place] [address] Care Team Providers Care Textiles Printer Name Role Phone Jyotsna Sewell APRN-JOHN Primary Care Provid er Encounter Details Date Type Department Care Team (Late Contact Info) Description 08/21/2023 Orders Only [facility] - Family Medicine [address] [place] [address] Jyotsna Sewell APRN-PARK ACTIVITIES COORDINATOR [address] 04/24/25 [place] [address] Social History Tobacco Use Types Packs/Day Years [...] Upcoming Encounters Date Type Department Care Team ([facility] [facility] Contact Info) Description 09/13/2025 4:00 PM EST Office Visit [facility] - Family Medicine [address] [place] [address] Solomon Ramirez, PLASTERER ROUGH-PARK ACTIVITIES COORDINATOR [address], [facility] [address] [place] [address] documented as of this encounter Procedures Procedure Name Priority Date/Time Associated Diagnosis Comments XR CHEST 2 VWS Routine 08/18/2023 11:57 AM EDT documented in this encounter Results * X-ray chest 2 views (08/18/2023 11:57 AM EDT) Anatomical Region Laterality Modality Body, Chest N/A Computed Radiogr aphy us Scanning Provider External IMG DIAGNOSTIC IMAGIN G ORDERABLES Final Result documented in this encounter Visit Diagnoses Not on filedocumented in this encounter Additional Health Concerns Assessment Noted Time PHQ-9 Depression Total Score: 0 08/13/20 23 11:07 AM EDT A Body Mass Index follow-up plan has been documented for the patient 08/13/2023 12:46 PM EDT documented as of this encounter Care Teams Textiles Printer Relationship Specialty Start Date End Date Jyotsna Sewell, PLASTERER ROUGH-PARK ACTIVITIES COORDINATOR PCP - General Family Medicine 04/09/21 documented as of this encounter
--- OUTSIDE RECORDS SUMMARY | 2025-05-24 09:39 | XMS_ITS | Encounter Summary ---
Author Organization [employer] Sys tem Address [id number] [address] [place] [address] Care Team Providers Care Hog Confinement System Manager Name Role Phone Jyotsna Sewell Primary Care Provid er Encounter Details Date Type Department Care Team (Late st Contact Info) Description 05/28/2023 Telephone [facility] - Family Medicine [address] [place] [address] Phoebe Giang CMA Social History Tobacco Use Types Packs/Day [...] encounter Miscellaneous Notes * Telephone Encounter - Phoebe Giang CMA - 05/28/2023 9:00 AM EDT Please advise the next apt for the B12 injection. I scheduled a week out so please check into this. * Telephone Encounter - MADIHA Orr - 05/28/2023 9:00 AM EDT Will be weekly for 3 more doses. Then monthly documented in this encounter Plan of Treatment Upcoming Encounters Date Type Department Care Team (Late st Contact Info) Description 09/13/2025 4:00 PM EST Office Visit [facility] - Family Medicine [address] [place] [address] Solomon Ramirez, AMDIHA [address], [facility] [address] [place] [address] documented as of this encounter Visit Diagnoses Not on filedocumented in this encounter Additional Health Concerns Assessment Noted Time PHQ-9 Depression Total Score: 0 04/22/20 23 11:44 AM EDT A Body Mass Index follow-up plan has been documented for the patient 04/23/2023 8:43 AM EDT documented as of this encounter Care Teams Hog Confinement System Manager Relationship Specialty Start Date End Date Jyotsna Sewell APRN-CNP PCP - General Family Medicine 04/09/21 documented as of this encounter
--- OUTSIDE RECORDS SUMMARY | 2025-05-24 09:39 | XMS_ITS | Encounter Summary ---
Author Organization [employer] Address [facility] [id number] [address] [place] [address] Care Team Providers Care Director Equipment Name Role Phone Jyotsna Sewell APRN-LINE OPERATOR Primary Care Provid er Encounter Details Date Type Department Care Team (Late st Contact Info) Description 05/20/2021 Telephone [facility] [address] [facility] [place] [address] Birgit Vickers MA Social History [...] Telephone Encounter - Birgit Vickers MA - 05/20/2021 11:21 AM EDT when we brought Prince Beckham in to see Radha she had given us an order for lorazepam to use before blood draws, doctor appointments and dental work. Unfortunately Prince's guardian will not agree to this medication. She says it will have to be reviewed by a human rights board before we can allow it. Rivas wondering if Radha could fax over a DC for the lorazepam to Prince's house when she has time? The fax is [phone]. If there's any issues with that just let me know. Thank you! Yessica Delacruz DSPS - [employer]. * Telephone Encounter - Birgit Vickers MA - 05/20/2021 11:21 AM EDT When this is done, I will fax it over [employer] documented in this encounter Plan of Treatment Upcoming Encounters Date Type Department Care Team (Late st Contact Info) Description 09/13/2025 4:00 PM EST Office Visit [facility] - Family Medicine [address] [place] [address] Solomon Ramirez, LEATHER BELT LOOP CUTTER-LINE OPERATOR [address], [address] [place] [address] [address] documented as of this encounter Visit Diagnoses [...] documented as of this encounter Care Teams Director Equipment Relationship Specialty Start Date End Date Jyotsna Sewell, LEATHER BELT LOOP CUTTER-LINE OPERATOR PCP - General Family Medicine 04/09/21 documented as of this encounter
--- OUTSIDE RECORDS SUMMARY | 2025-05-24 09:39 | XMS_ITS | Encounter Summary ---
Author Organization [employer] Address [facility] [id number] [address] [place] [address] Care Team Providers Care Folder Machine Adjuster Name Role Phone Jyotsna Sewell APRN-CREDIT CONTROL OFFICER Primary Care Provid er Reason for Visit * Reason Onset Date Comments Med Refill 06/14/2021 Encounter Details Date Type Department Care Team (Late st Contact Info) Description 06/14/2021 Refill [facility] [address] [place] [address] [place] [address] Birgit Vickers MA Social History Tobacco Use [...] have Coronavirus / COVID-19? No / Unsure 06/03/2021 8:28 AM EDT documented as of this encounter Miscellaneous Notes * Telephone Encounter - Birgit Vickers MA - 06/14/2021 10:21 AM EDT [facility] called and said they need new rx for miralax since daily documented in this encounter Plan of Treatment Upcoming Encounters Date Type Department Care Team (Late st Contact Info) Description 09/13/2025 4:00 PM EST Office Visit [facility] - Family Medicine [address] [place] [address] Solomon Ramirez, RADIO ELECTRONICS OFFICER-CREDIT CONTROL OFFICER [address] [place] [address] documented as of this encounter Visit Diagnoses [...] documented as of this encounter Care Teams Folder Machine Adjuster Relationship Specialty Start Date End Date Jyotsna Sewell, RADIO ELECTRONICS OFFICER-CREDIT CONTROL OFFICER PCP - General Family Medicine 04/09/21 documented as of this encounter
--- OUTSIDE RECORDS SUMMARY | 2025-05-24 09:39 | XMS_ITS | Encounter Summary ---
Author Organization [employer] Address [facility] [place]-[id number] [address] [place] [address] Care Team Providers Care Hoop Driving Machine Operator Name Role Phone Jyotsna Sewell APRN-CRATE MAKER Primary Care Provid er Encounter Details Date Type Department Care Team (Late Contact Info) Description 07/11/2021 Abstract [facility] - Medical Oncology [address] [place] [address] Zaira Nguyen Social History Tobacco Use Types Packs/Day Years [...] have Coronavirus / COVID-19? No / Unsure 07/10/2021 9:05 AM EDT documented as of this encounter Plan of Treatment Upcoming Encounters Date Type Department Care Team (Late Contact Info) Description 09/13/2025 4:00 PM EST [facility] [address] [place] [phone] Solomon Ramirez, ESTIMATOR PROJECT MANAGER-CRATE MAKER [address] [facility] [address] [place] [address] documented as of this encounter Procedures Procedure Name Priority Date/Time Associated Diagnosis Comments MULTIPLE LABS Routine 11/16/2020 MULTIPLE LABS Routine 11/16/2020 documented in this encounter Results * Multiple labs (11/16/2020) 11/16/2020 us Not In System Ref Prov NM IMAGING Final Res ult * Multiple labs (11/16/2020) 11/16/2020 us Not In System Ref Prov NM IMAGING Final Res ult documented in this encounter Visit Diagnoses Not on filedocumented in this encounter Additional Health Concerns Infection Onset Date Last Indicated Resolved Time COVID-19 Positive 07/31/2021 07/31/2021 08/21/2021 11:12 PM EDT COVID-19 Rule-Out 08/02/2021 07/31/2021 08/02/2021 11:31 AM EDT Assessment Noted Time PHQ-9 Depression Total Score: 0 07/10/20 9:10 AM EDT A Body Mass Index follow-up plan has been documented for the patient 07/15/2021 7:31 PM EDT documented as of this encounter Care Teams Hoop Driving Machine Operator Relationship Specialty Start Date End Date Jyotsna Sewell, ESTIMATOR PROJECT MANAGER-CRATE MAKER PCP - General Family Medicine 04/09/21 documented as of this encounter
--- OUTSIDE RECORDS SUMMARY | 2025-05-24 09:39 | XMS_ITS | Encounter Summary ---
Author Organization [facility] Address [facility] [id number] [address] [place] [address] Care Team Providers Care Web Design Instructor Name Role Phone Jyotsna Sewell APRN-TELEPHONE DIRECTORY DISTRIBUTOR DRIVER Primary Care Provid er Reason for Visit * Reason Comments Med Refill Encounter Details Date Type Department Care Team (Late st Contact Info) Description 05/16/2025 Refill [facility] - Family Medicine [address] [place] [phone] Jyotsna Sewell APRN-TELEPHONE DIRECTORY DISTRIBUTOR DRIVER [address] PM 04/24/25 [place] [phone] Vitamin D deficiency Social History Tobacco Use Types Packs/Day Years Used Date Smoking Tobacco: Never Smokeless Tobacco: Never Alcohol Use Standard Drinks/Week Comments Never 0 (1 standard drink = 0.6 oz pur e alcohol) PHQ-2 Answer Date Recorded Total Score 0 04/10/2025 Childcare Answer Date Recorded Childcare Unknown 04/06/2019 Employment Answer Date Recorded Employment Unknown 04/06/2019 Hunger Screening Answer Date Recorded Within the past 12 months we worried whether our food would run out before we got money to buy more. Never True 04/10/2025 Within the past 12 months th e food we bought just didn't last and we didn't have money to get more. Never True 04/10/2025 Purpose - Life Answer Date Recorded Purpose [...] Internal Medicine - Family Medicine [address] [place] [address] Solomon Ramirez, KITCHEN PORTER-TELEPHONE DIRECTORY DISTRIBUTOR DRIVER [address], [facility] [address] [place] [address] documented as of this encounter Visit Diagnoses Diagnosis Vitamin D deficiency documented in this encounter Additional Health Concerns Assessment Noted Time PHQ-9 Depression Total Score: 0 04/10/20 25 4:15 PM EDT A Body Mass Index follow-up plan has been documented for the patient 04/10/2025 4:53 PM EDT documented as of this encounter Care Teams Web Design Instructor Relationship Specialty Start Date End Date Jyotsna Sewell, KITCHEN PORTER-TELEPHONE DIRECTORY DISTRIBUTOR DRIVER PCP - General Family Medicine 04/09/21 documented as of this encounter
--- OUTSIDE RECORDS SUMMARY | 2025-05-24 09:39 | XMS_ITS | Clinical Summary ---
Author Organization [email or web address] Address [facility] [id number] [address] [place] [address] Care Team Providers Care Out And Out Cigar Maker Hand Name Role Phone Jyotsna Sewell APRN-DIRECTOR VIDEO Primary Care Provid er Allergies Active Allergy Reactions Criticality Noted Date Comments Caffeine 08/16/2018 Medications QUEtiapine (SEROquel) 400 mg tablet Take 1 tablet (400 mg total) by mouth nightly. Active risperiDONE (RisperDAL) 1 mg tablet Take 1 tablet (1 mg total) by mouth in the morning and 1 tablet (1 mg total) at noon and 1 tablet (1 mg total) before bedtime. Active risperiDONE (RisperDAL) 2 mg tablet Take 1 tablet (2 mg total) by mouth nightly. Active QUEtiapine (SEROquel) 200 mg tablet Take 1 tablet (200 mg total) by mouth in the morning and 1 tablet (200 mg total) before bedtime. 2021 Active carBAMazepine (TEGretol) 200 mg tablet Take 1 tablet (200 mg total) by mouth in the morning. 2022 Active ENEMA DISPOSABLE 19-7 gram/118 mL enemaIndications :Drug-induced constipation INSERT 1 BOTTLE PER RECTUM EVERY 3 DAYS IF NO BOWEL MOVEMENT & IF SUPPOSITORY INEFFECTIVE AFTER 4 HOURS NEEDED 266 mL 11 2022 Active furosemide (LASIX) 20 mg tablet take 1 tablet by mouth once every day 31 tablet 11 2023 Active pantoprazole (PROTONIX) 40 mg EC tabletIndication s:GERD without esophagitis take 1 tablet by mouth once every day 31 tablet 11 2023 Active OXcarbazepine (TRILEPTAL) 300 mg tabletIndication s:Seizure disorder (CMS-HCC) take 1 tablet by mouth twice daily 62 tablet 11 2023 Active cetirizine (ZyrTEC) 10 mg tabletIndication s:Seasonal allergic rhinitis, unspecified trigger TAKE 1 TABLET BY MOUTH DAILY AT 8PM 31 tablet 2023 Active trihexyphenidyL (ARTANE) 2 mg tablet TAKE 1/2 TABLET (1MG) BY MOUTH TWICE DAILY 31 tablet 11 2023 Active SENNA PLUS 8.6-50 mgIndications:Ch ronic idiopathic constipation TAKE 1 TABLET BY MOUTH TWICE DAILY IN THE MORNING AND AT BEDTIME. HOLD DOSE FOR LOOSE STOOLS 62 tablet 11 2023 Active lactulose (CHRONULAC) 10 gram/15 mL solutionIndicati ons:Chronic idiopathic constipation TAKE 30 ML (20GM) BY MOUTH TWICE DAILY (AM AND BEFORE BED) FOR CONSTIPATION - HOLD IF LOOSE STOOLS 1892 mL 9 2023 Active levothyroxine (SYNTHROID, LEVOTHROID) 137 MCG tabletIndication s:Acquired hypothyroidism TAKE 1 TABLET BY MOUTH DAILY AT 7AM ON AN EMPTY STOMACH FOR HYPOTHYROIDISM 31 tablet 11 2023 Active bisacodyL (DULCOLAX) 10 mg suppositoryIndic ations:Drug-rhonda kay constipation INSERT 1 SUPPOSITORY RECTALLY ON DAY 3 IF NO BOWEL MOVEMENT NEEDED FOR CONSTIPATION (36 DAY SUPPLY) 12 suppository 2024 Active pseudoephedrine (SUDAFED) 30 mg tabletIndication s:Congestion of nasal sinus,Seasonal allergic rhinitis due to pollen TAKE 1 TABLET BY MOUTH EVERY 6 HOURS NEEDED FOR CONGESTION AND RUNNY NOSE. DO NOT EXCEED 4 TABLETS PER 24 HOURS. CALL PHYSICIAN IN 48 HOURS IF SYMPTOMS DO NOT IMPROVE. 24 tablet 2024 Active montelukast (SINGULAIR) 10 mg tabletIndication s:Seasonal allergic rhinitis due to pollen TAKE 1 TABLET BY MOUTH EVERY MORNING 31 tablet 11 2024 Active cyanocobalamin (VITAMIN B12) 500 mcg tablet,disintegr atingIndications :Vitamin B 12 deficiency TAKE 1 TABLET UNDER THE TONGUE EVERY MORNING 19 tablet 11 2024 Active polyethylene glycol (GLYCOLAX) 17 gram/dose powderIndication s:Drug-induced constipation Take 17 g by mouth in the morning. Mix in 8 oz of water or juice. 510 g 11 2024 Active pyrilamine-dextr omethorphan (CAPRON DM) 7.5-7.5 mg/5 mL liquidIndication s:Acute cough Take 10 mL by mouth every 8 (eight) hours as needed (cough and congestion). Maximum 3 doses per 24 hours. Call provider if symptoms do not improved in 48 hours. 60 mL 2024 Active acetaminophen (TYLENOL) 325 mg tablet 2024 Active risperiDONE (RisperDAL) 0.5 mg tablet Take 1 tablet (0.5 mg total) by mouth in the morning. Active cholecalciferol, vitamin D3, 2,000 units tabletIndication s:Vitamin D deficiency TAKE 1 TABLET BY MOUTH ONCE EVERY DAY FOR VITAMIN D DEFICIENCY 30 tablet 11 2024 Active cholecalciferol, vitamin D3, 2,000 units tabletIndication s:Vitamin D deficiency take 1 tablet by mouth once every day 30 tablet 11 05/17 Discontinued Active Problems Problem Noted Date Diagnosed Date Chronic constipation 04/10/2025 Recurrent UTI 11/20/2023 Gross hematuria 10/21/2023 Overview (03/29/2024): 10/21/23: Several episodes of gross hematuria thought to be related to UTIs but it does not seem that cultures were checked. We will start by checking a renal/bladder US and determine further management from there. 11/18/23: Ultrasound showed mild bladder trabeculation but no other abnormalities. We discussed cystoscopy/possible [facility]/possible [facility]. His caregivers would like to go forward with the plan. We will need to make sure his guarding is there to sign consent forms. 12/22/2023: Dorsal slit, cysto with bilateral retrograde pyelogram, [facility] instillation 03/29/2024: No further episodes of hematuria. Did request culture if recurrent episodes. Assessment & Plan (11/18/2023 10:49 AM EST): I explained the procedure in detail Assessment & Plan (10/21/2023 4:26 PM EST): I wanted to get a CT urogram, but he has a lot of unintentional movements for which the caregiver said will not be able to be controlled for the scan. We will likely need to a cystoscopy as well, but I want to see the results of the ultrasound 1st. He will need to be under anesthesia for the cystoscopy Obesity, morbid 09/29/2023 Vitamin B 12 deficiency 11/03/2022 JAVI (obstructive sleep apnea) 07/16/2022 Down syndrome 06/10/2022 Hereditary hemochromatosis 07/05/2021 Pericardial effusion 05/15/2021 Visual impairment 04/22/2021 Hearing impaired 04/22/2021 Developmental non-verbal disorder 04/22/2021 Acquired hypothyroidism 03/04/2019 Seizure disorder 03/04/2019 Autism 01/26/2019 Severe intellectual disability 06/02/2017 Overview (06/10/2022): Replacing deprecated diagnoses Chronic periodontal disease 08/08/2014 Resolved Problems Problem Noted Date Diagnosed Date Resolved Date Acute cough 08/31/2023 04/10/2025 Drug-induced leukopenia 01/21/202311/26 Encounters Date Type Department Care Team Description 05/16/2025 Refill [facility] - Family Medicine [address] [place] [address] Jyotsna Sewell APRN-JOHN Vitamin D deficiency 04/10/2025 4:00 PM EDT Office Visit [facility] - Family Medicine [address] [place] [address] Jyotsna Sewell WELDER ASSISTANT-DIRECTOR VIDEO Acquired hypothyroidism (Primary Dx); Seizure disorder (CMS-HCC); Developmental non-verbal disorder; Down syndrome; Chronic constipation 04/10/2025 Travel 03/22/2025 Refill [facility] - Family Medicine [address] [place] [address] Marah Franklin CMA 03/13/2025 Telephone [facility] - Family Medicine [address] [place] [address] Phoebe Giang CMA 03/13/2025 Orders Only [facility] - Family Medicine [address] [place] [address] Jyotsna Sewell, WELDER ASSISTANT-DIRECTOR VIDEO Acute cough from Last 3 Months Immunizations Immunization Administration Dates Next Due Covid-19, Mrna, Lnp-s, Bival ent, Pf, 30mcg/0.3 ml 07/22/2022 Hep B, Adolescent or Pediatric 06/24/2000 Hep B, Unspecified 06/24/2000 Influenza (IM) Preservative Free 09/07/2024 Influenza, Injectable, quadrivalent (PF) 023,07/16/2022,09/17/2020 MMR 06/24/2000 Pneumococcal Polysaccharide 03/04/2019 Tdap 03/04/2019 Family History Medical History Relation Name Comments No Known Problems Father No Known Problems Mother Relation Name Status Comments Father Alive Mother Social History Tobacco Use Types Packs/Day Years Used Date Smoking Tobacco: Never Smokeless Tobacco: Never Tobacco Cessation:Counseling Given: Not Answered Alcohol Use Standard Drinks/Week Comments Never 0 [...] on file Sexual Orientation Not on file Last Filed Vital Signs Vital Sign Reading Time Taken Comments Blood Pressure 118/60 04/10/2025 4:16 PM EDT Pulse 77 04/10/2025 4:16 PM EDT Temperature 36.2 C (97.1 F) 04/10/2025 4:16 PM EDT Respiratory Rate 20 04/10/2025 4:16 PM EDT Oxygen Saturation 92% 04/10/2025 4:16 PM EDT Inhaled Oxygen Concentration - - Weight 83.8 kg (184 lb 12.8 oz) 04/10/2025 4:16 PM EDT Height 152.4 cm (5') 04/10/2025 4:16 PM EDT Body Mass Index 36.09 04/10/2025 4:16 PM EDT Plan of Treatment Upcoming Encounters Date Type Department Care Team (Late st Contact Info) Description 09/13/2025 4:00 PM EST Office Visit [facility] - Family Medicine [address] [place] [address] Solomon Ramirez, WELDER ASSISTANT-DIRECTOR VIDEO [address], [address] [place] [address] Health Maintenance Due Date Last Done Comments COVID-19 Vaccine (2023-2 5 season) 2024 07/22/2022, 12/03/2020, 11/05/2020 Influenza Vaccine 06/26/2025 09/07/2024, , 07/16/2022, Additional history exists Adult BMI Follow Up Plan 04/10/2026 04/10/2025 Adult BMI Screening 04/10/2026 04/10/2025 Depression Screening 04/10/2026 04/10/2025 Tobacco Screening 04/10/2026 04/10/2025 DTaP,Tdap and Td Vaccines (2 - Td or Tdap) 03/04/2029 03/04/2019 Medical Devices Not on file Insurance MEDICARE MEDICAID [place] Care Teams Out And Out Cigar Maker Hand Relationship Specialty Start Date End Date Jyotsna Sewell APRN-DIRECTOR VIDEO PCP - General Family Medicine 04/09/21
--- OUTSIDE RECORDS SUMMARY | 2025-05-24 09:39 | XMS_ITS | Encounter Summary ---
Author Organization [employer] Address [facility] [id number] [address] [place] [address] Care Team Providers Care Upholstery Tech Name Role Phone Jyotsna Sewell APRN-VIDEO SYSTEMS ENGINEER Primary Care Provid er Reason for Visit * Reason Comments Med Refill Encounter Details Date Type Department Care Team (Late Contact Info) Description 07/08/2023 Refill [facility] - Family Medicine [address] [place] [address] Jyotsna Sewell APRN-VIDEO SYSTEMS ENGINEER [address] PM 04/24/25 [place] [phone] GERD without esophagitis Social History Tobacco Use Types Packs/Day Years [...] Internal Medicine - Family Medicine [address] [place] [address] Solomon Ramirez, HAM STRINGER-VIDEO SYSTEMS ENGINEER [address], [address] [address] documented as of this encounter Visit Diagnoses Diagnosis GERD without esophagitis Esophageal reflux documented in this encounter Additional Health Concerns Assessment Noted Time PHQ-9 Depression Total Score: 0 04/22/20 11:44 AM EDT A Body Mass Index follow-up plan has been documented for the patient 04/23/2023 8:43 AM EDT documented as of this encounter Care Teams Upholstery Tech Relationship Specialty Start Date End Date Jyotsna Sewell, TEO-VIDEO SYSTEMS ENGINEER PCP - General Family Medicine 04/09/21 documented as of this encounter
--- OUTSIDE RECORDS SUMMARY | 2025-05-24 09:39 | XMS_ITS | Encounter Summary ---
Author Organization [employer] Address [facility] [id number] [address] [place] [address] Care Team Providers Care Coke Handling Supervisor Name Role Phone DonatoRadhaJyotsnadiana Diallo APRN-ATTENDING PHYSICIAN Primary Care Provid er Encounter Details Date Type Department Care Team (Late Contact Info) Description 08/10/2023 Orders Only [facility] Internal [facility] - Family Medicine [address] [place] [phone] Ref Prov, [place] [address] Social History Tobacco Use Types Packs/Day Years [...] Medicine - Family Medicine [address] [place] [address] Solomon Ramirez, DOG FOOD DOUGH MIXER-ATTENDING PHYSICIAN [address], [facility] [address] [place] [address] documented as of this encounter Procedures Procedure Name Priority Date/Time Associated Diagnosis Comments XR CHEST 1 VW Routine 08/10/2023 1:13 PM EDT documented in this encounter Results * X-ray chest 1 view (08/10/2023 1:13 PM EDT) Anatomical Region Laterality Modality Body, Chest N/A Computed Radiogr aphy us Not In System Ref Prov IMG DIAGNOSTIC IMAGING OR DERABLES Final Result documented in this encounter Visit Diagnoses Not on filedocumented in this encounter Additional Health Concerns Assessment Noted Time PHQ-9 Depression Total Score: 0 04/22/20 11:44 AM EDT A Body Mass Index follow-up plan has been documented for the patient 04/23/2023 8:43 AM EDT documented as of this encounter Care Teams Coke Handling Supervisor Relationship Specialty Start Date End Date Jyotsna Sewell, DOG FOOD DOUGH MIXER-ATTENDING PHYSICIAN PCP - General Family Medicine 04/09/21 documented as of this encounter
--- OUTSIDE RECORDS SUMMARY | 2025-05-24 09:40 | XMS_ITS | Encounter Summary ---
Author Organization [employer] Address [facility] [id number] [address] [place] [address] Care Team Providers Care Social Work Supervisor Name Role Phone Jyotsna Sewell Primary Care Provid er Encounter Details Date Type Department Care Team (Late st Contact Info) Description 04/23/2023 Telephone [facility] - Family Medicine [address] [place] [address] Birgit Vickers MA Social History [...] Telephone Encounter - Birgit Vickers MA - 04/23/2023 9:24 AM EDT ----- Message from MADIHA Orr sent at 04/22/2023 7:44 PM EDT ----- We were unable to draw iron panel (combative). I changed order for lab draw- is not on his April standing orders. Can you update Alexa- she will needs theses orders as well. I am afraid they will not get drawn together with the standing. Ask if she wants mailed to the house. Going end of April documented in this encounter Plan of Treatment Upcoming Encounters Date Type Department Care Team (Late st Contact Info) Description 09/13/2025 4:00 PM EST Office Visit [facility] - Family Medicine [address] [place] [address] Solomon Ramirez, BOARDER MACHINE-INFANTRY ASSAULTMAN [address] [place] [address] documented as of this encounter Visit Diagnoses Not on filedocumented in this encounter Additional Health Concerns Assessment Noted Time PHQ-9 Depression Total Score: 0 04/22/20 23 11:44 AM EDT A Body Mass Index follow-up plan has been documented for the patient 04/23/2023 8:43 AM EDT documented as of this encounter Care Teams Social Work Supervisor Relationship Specialty Start Date End Date Jyotsna Sewell, BOARDER MACHINE-INFANTRY ASSAULTMAN PCP - General Family Medicine 04/09/21 documented as of this encounter
--- OUTSIDE RECORDS SUMMARY | 2025-05-24 09:40 | XMS_ITS | Clinical Summary ---
Author Organization [facility] Address [address] [facility] [address], [address] [place] [address] Care Team Providers Care Programming Manager Name Role Phone Jyotsna Sewell MACHINE WOODWORKING SANDER - MANAGER MISSION Primary Care Prov ider Allergies Active Allergy Reactions Criticality Noted Date Comments Caffeine 12/10/2013 Other 01/25/2019 Kimble dye- agitation Red Dye #40 (Allura Red) 05/23/2016 Other reaction(s): Agitation Medications QUEtiapine (SEROQUEL) 100 MG tablet Take 200 mg by mouth 2 times daily Active QUEtiapine (SEROQUEL) 100 MG tablet Take 400 mg by mouth nightly Active risperiDONE (RISPERDAL) 1 MG tablet Take 1 mg by mouth daily Active risperiDONE (RISPERDAL) 2 MG tablet Take 2 mg by mouth nightly Active hydrocortisone 1 % cream Apply 1 each topically 3 times daily as needed (Rash) Apply topically 2 times daily. Active risperiDONE (RISPERDAL) 1 MG tablet Take 1.5 mg by mouth Daily with lunch Active acetaminophen (TYLENOL) 325 MG tablet Take 650 mg by mouth every 6 hours as needed for Pain Active nystatin (MYCOSTATIN) 683873 UNIT/GM cream Apply 1 applicator topically 2 times daily as needed for Dry Skin Apply topically 2 times daily. 60 g 5 9 Active fluocinonide (LIDEX) 0.05 % cream Apply 1 applicator topically 2 times daily Apply topically 2 times daily. 30 g 1 9 Active carBAMazepine (TEGRETOL) 200 MG tablet Take 1 tablet by mouth every morning 90 tablet 3 9 Active Dextromethorphan- guaiFENesin (MUCINEX DM) 30-600 MG TB12 Take 1 tablet by mouth 2 times daily 20 tablet 0 Active polyethylene glycol (GLYCOLAX) 17 GM/SCOOP powderIndications :Constipation, unspecified constipation type Take 17 g by mouth daily 1 Bottle 5 0 Active polyethylene glycol (GLYCOLAX) 17 g packetIndications :Constipation, unspecified constipation type Take 17 g by mouth every other day 30 each 5 0 Active levothyroxine (SYNTHROID) 88 MCG tablet Take 1 tablet by mouth Daily 90 tablet 3 1 Active vitamin D3 (CHOLECALCIFEROL) 25 MCG (1000 UT) TABS tablet GIVE 2 TABLETS (2000 UNITS) BY MOUTH ONCE DAILY 180 tablet 3 1 Active trihexyphenidyl (ARTANE) 2 MG tablet GIVE 1/2 TABLET (1MG) BY MOUTH TWICE DAILY *OK TO SPLIT* 180 tablet 1 2 Active OXcarbazepine (TRILEPTAL) 300 MG tablet GIVE 1 TABLET BY MOUTH TWICE DAILY 180 tablet 2 Active furosemide (LASIX) 20 MG tablet GIVE 1 TABLET BY MOUTH ONCE DAILY 90 tablet 1 3 Active pantoprazole (PROTONIX) 40 MG tablet TAKE 1 TABLET BY MOUTH ONCE DAILY 30 tablet 3 Active Active Problems Patient Care Coordination No te Formatting of this note migh t be different from the original. nHpredict in media. Recommendation SNF, but neuro mitts + high flow oxygen require LTAC Variation noted - [facility]. Problem Noted Date Diagnosed Date Seizure disorder 03/04/2019 Congestive heart failure (CHF) 03/04/2019 Acquired hypothyroidism 03/04/2019 Severe intellectual disability 01/26/2019 Pericardial effusion 01/25/2019 Mental retardation, idiopathic severe 06/02/2017 Overview (04/04/2019): Replacing deprecated diagnoses Chronic periodontal disease 08/08/2014 Down syndrome Development delay Autism JAVI (obstructive sleep apnea) Resolved Problems Problem Noted Date Diagnosed Date Resolved Date Anemia, unspecified 03/04/2019 12/10/19 21 Shock 01/26/2019 03/04/2019 Concern for pneumonia 01/26/20192018 Diarrhea, unspecified 05/31/20112020 Acute respiratory failure with hypoxia 11/25/2019 Acute viral pericarditis 07/2019 Immunizations Immunization Administration Dates Next Due Hep B, ENGERIX-B, RECOMBIVAX -HB, (age - 19y), IM, 0.5mL 06/24/2000 Influenza, FLUARIX, FLULAVAL , FLUZONE (age 6 mo+) and AFLURIA, (age 3 y+), Quadv PF, 0.5mL 09/17/2020 MMR, PRIORIX, M-M-R II, (age 12m+), SC, 0.5mL Pneumococcal, PPSV23, PNEUMO VAX 23, (age 2y+), SC/IM, 0.5mL 03/04/2019 TDaP, ADACEL (age 10y-64y), BOOSTRIX (age 10y+), IM, 0.5mL 03/04/2019 Social History Tobacco Use Types Packs/Day Years Used Date Smoking Tobacco: Never Smokeless Tobacco: Never Alcohol Use Standard Drinks/Week Comments Never 0 (1 standard drink = 0.6 oz pur e alcohol) AUDIT-C Answer Date Recorded Frequency of Alcohol Consumption Never 01/25/2019 Average Number of Drinks Not on file 019 Frequency of Binge Drinking Not on file 11/2018 Overall Financial Resource Strain (CARDIA) Answe r Date Recorded How hard is it for you to pa y for the very basics like food, housing, medical care, and heating? Not hard at all 12/10/2020 PHQ-2 Answer Date Recorded PHQ-9 Total Score 0 12/10/2020 Hunger Vital Sign Answer Date Recorded Within the past 12 months, y ou worried that your food would run out before you got the money to buy more. Never true 12/10/19 21 Within the past 12 months, t he food you bought just didn't last and you didn't have money to get more. Never true 12/10/2020 PRAPARE - Transportation Answer Date Re corded In the past 12 months, has l ack of transportation kept you from medical appointments or from getting medications? No 11/26 In the past 12 months, has l ack of transportation kept you from meetings, work, or from getting things needed for daily living? No 12/10/2020 Sex and Gender Information Value Date Recorded Sex Assigned at Not on file Legal Sex Male 5:59 PM EST Gender Identity Not on file Sexual Orientation Not on file Last Filed Vital Signs Vital Sign Reading Time Taken Comments Blood Pressure 122/78 08/18/2023 12:46 PM EDT Pulse 93 08/18/2023 12:46 PM EDT Temperature 36.2 C (97.2 F) 08/18/2023 12:46 PM EDT Respiratory Rate 16 08/18/2023 12:46 PM EDT Oxygen Saturation 97% 08/18/2023 12:46 PM EDT Inhaled Oxygen Concentration - - Weight 84.5 kg (186 lb 3.2 oz) 12/10/2020 2:12 P M EST Height 154.8 cm (5' 0.96 ) 12/10/2020 2:12 PM ES T Body Mass Index 35.23 12/10/2020 2:12 PM EST Plan of Treatment Health Maintenance Due Date Last Done Comments Depression Screen 1994 Varicella vaccine (1 of 2 - 13+ 2-dose series) 1995 HIV screen 1997 Hepatitis C screen 2000 Hepatitis B vaccine (2 of 3 - 3-dose series) 07/22/2000 06/24/2000 Pneumococcal 0-49 years Vaccine (2 of 2 - PCV) 03/04/2020 03/04/2019 Annual Wellness Visit (Medicare) 09/21/2023 12/10/2020, 11/25/2019 COVID-19 Vaccine (2 - 2023-2 5 season) 2024 07/22/2022 Lipids 09/24/2024 09/24/2019, 07/28/2019 Flu vaccine (#1) 05/26/2025 08/13/2023, 07/16/2022, 09/17/2020 DTaP/Tdap/Td vaccine (2 - Td or Tdap) 03/04/2029 03/04/2019 Diabetes screen Discontinued 09/24/2019, 07/28/2019, 03/04/2019 HPV vaccine Aged Out No longer eligi ble based on patient's age to complete this topic Hepatitis A vaccine Aged Out No longe r eligible based on patient's age to complete this topic Hib vaccine Aged Out No longer eligi ble based on patient's age to complete this topic Meningococcal (ACWY) vaccine Aged Out No longer eligible based on patient's age to complete this topic Meningococcal B vaccine Aged Out No l onger eligible based on patient's age to complete this topic Polio vaccine Aged Out No longer elig ible based on patient's age to complete this topic Procedures Procedure Name Priority Date/Time Associated Diagnosis Comments HEMOGLOBIN A1C Routine 09/24/2019 7:29 AM EST LIPID PANEL Routine 09/24/2019 7:29 AM EST from Last 3 Months or Most Recently Relevant to Health Maintenance Results * Hemoglobin A1C (09/24/2019 7:29 AM EST) Hemoglobin A1C 5.3 4.8 - 5.9 % 09/24/2019 7:29 AM [facility] Estimated Avg Glucose 105 mg/dL 09/24/2019 7:29 AM [facility] Comment: The ADA and AACC recommend providing the estimated average glucose result to permit better patient understanding of their HBA1c result. 09/24/2019 7:29 AM EST 09/24/2019 7:30 AM EST us Tashi Acevedo MD CHEMISTRY ORDERABLES Final Re sult [facility] [address] [phone] * Lipid Panel (09/24/2019 7:29 AM EST) Cholesterol 193 <200 mg/dL 09/24/2019 7:29 AM [facility] Comment: Cholesterol Guidelines: <200 Desirable 200-240 Borderline >240 Undesirable HDL 72 >40 mg/dL 09/24/2019 7:29 AM [facility] Comment: HDL Guidelines: <40 Undesirable 40-59 Borderline >59 Desirable LDL Cholesterol 112 0 - 130 mg/dL 09/24/2019 7:29 AM [facility] Comment: LDL Guidelines: <100 Desirable 100-129 Near to/above Desirable 130-159 Borderline >159 Undesirable Direct (measured) LDL and calculated LDL are not interchangeable tests. Chol/HDL Ratio 2.7 <5 09/24/2019 7:29 AM EST [facility] Comment: Triglycerides 46 <150 mg/dL 09/24/2019 7:29 AM [facility] Comment: Triglyceride Guidelines: <150 Desirable 150-199 Borderline 200-499 High >499 Very high Based on AHA Guidelines for fasting triglyceride, July 2012. VLDL NOT REPORTED 1 - 30 mg/dL 09/24/2019 7:29 AM [facility] 09/24/2019 7:29 AM EST 09/24/2019 7:30 AM EST us Tashi Acevedo MD CHEMISTRY ORDERABLES Final Re sult [facility] [address] [place] [address], [facility] [phone] from Last 3 Months or Most Recently Relevant to Health Maintenance Insurance MEDICARE [place]ICAID [place] Advance Directives Documents on File Type Date Recorded Patient Real Estate Closing Coordinator Expl anation ACP-Guardianship 04/13/2020 2:02 PM * Full Code (Latest Code Status on File) Date Activated Date Inactivated Comments 01/26/2019 4:14 AM 02/09/2019 11:09 PM * Full Code Date Activated Date Inactivated Comments 01/25/2019 5:55 PM 01/26/2019 2:46 AM Care Teams Programming Manager Relationship Specialty Start Date End Date Jyotsna Sewell, TEO - MANAGER MISSION PCP - General Certified Nurse Practitioner 08/18/23
--- OUTSIDE RECORDS SUMMARY | 2025-05-24 09:40 | XMS_ITS | Patient Health Record ---
Author Organization [facility] Address [address] [place], [place] [id number] [place], [place] [id number] Care Team Providers Care Sales Agent Protective Service Name Role Phone Bruce Paige Primary Care Provider Billie Pascual Unavailable Unavailable Allergies Allergen (clinical drug ingredient) Drug/Non Drug Allergy documented on EMR Reaction Allergy Type Onset Date Status red dye (uncoded) Unknown Allergy Ac tive caffeine Caffeine Unknown Drug Allergy Active orange allergenic extract Sargent (Diagnostic) Unknown Drug Allergy Active Reason For Referral No Information Medications Medication SIG (Take, Route, Frequency, Duration) Notes Start Date End Date Status Pantoprazole Sodium 40 MG 1 tablet Orally Once a day Active SEROquel Active Vitamin D Active Trihexyphenidyl HCl Active OXcarbazepine Active carBAMazepine Active Fluocinonide Active Lactulose Active Polyethylene Glycol Active Furosemide Active Levothyroxine Sodium Active risperiDONE Active Hydrocortisone Activ e Ibuprofen Active Social History Tobacco Use: Social History Observation Description Date Details (start date - stop date) Never Smoker NA - NA Alcohol Screen Question Answer Notes Did you have a drink containing alcohol in the p ast year? No Points 0 Interpretation Negative Smoking Question Answer Notes Status nonsmoker Problems Problem Type SNOMED Code ICD Code Onset Dates Problem Status W/U Status Risk Notes Problem Hyperammonemia (3391231) Hyperammonemia (E72.20) Active confirmed 39-year-old mal e with mental delay due to multiple comorbidities. Unfortunately, I am unable to obtain much history from the patient. Ammonia level is elevated; however, review of recent serologic workup does not show evidence of advanced liver disease. Discussed with caregiver other possible etiologies of hyperammonemia which include congenital disorders of ammonia metabolism, kidney disease, side effects of certain medications such as diuretics, and heart failure. I am not opposed to lactulose use, but recommend medication be titrated to 2-3 bowel movements per day. I am requesting he complete a Fibrosure and liver ultrasound to evaluate for advanced liver disease. Additional recommendations will be made as needed based on initial workup. Plan Of Treatment Pending Test Test Name Order Date FibroSURE* 12/30/2019 Insurance Providers Payer Name Payer Address Payer Phone Subscriber Number Group Number Insured Name Patient Relationship to Insured Coverage Start Date Coverage End [place] [address] [place] [address] [id number] Prince Beckham Self - patient is the insured [facility] [address] [place] [phone] [id number] Prince Beckham Self - patient is the insured Medical (General) History Medical History History ICD Code hypothyroidism anemia respiratory failure autism congestive heart failure constipation Down's syndrome obstructive sleep apnea seizures Surgical History Surgery Date(Month/Year) lung surgery
--- OUTSIDE RECORDS SUMMARY | 2025-05-24 09:40 | XMS_ITS | Encounter Summary ---
Author Organization [employer] Address [id number] [address] [place] [address] Care Team Providers Care Pantograph Transferrer Name Role Phone Jyotsna Sewell Primary Care Provid er Encounter Details Date Type Department Care Team (Late st Contact Info) Description 06/10/2022 Telephone [facility] [address] [place] [address] Birgit Vickers MA Social History Tobacco Use Types Packs/Day Years Used Date Smoking Tobacco: Never Smokeless Tobacco: Never Alcohol Use Standard Drinks/Week Comments Never 0 (1 standard drink = 0.6 oz pur e alcohol) PHQ-2 Answer Date Recorded Total Score 0 06/09/2022 Childcare Answer Date Recorded Childcare Unknown 04/06/2019 [...] have Coronavirus / COVID-19? No / Unsure 06/09/2022 3:12 PM EDT documented as of this encounter Miscellaneous Notes * Telephone Encounter - Birgit Vickers MA - 06/10/2022 9:45 AM EDT ----- Message from MADIHA Orr sent at 06/10/2022 9:43 AM EDT ----- Please fax last CBC, CMP, carbezipine level to [facility] attention Dr Vizcaino. I will also need his psychprovider to receive these labs. documented in this encounter Plan of Treatment Upcoming Encounters Date Type Department Care Team (Late st Contact Info) Description 09/13/2025 4:00 PM EST Office Visit [facility] - Family Medicine [address] [place] [address] Solomon Ramirez, TEO-JOHN [address], [place] [id number] documented as of this encounter Visit Diagnoses Not on filedocumented in this encounter Additional Health Concerns Assessment Noted Time PHQ-9 Depression Total Score: 0 06/09/20 22 3:36 PM EDT A Body Mass Index follow-up plan has been documented for the patient 06/10/2022 11:24 AM EDT documented as of this encounter Care Teams Pantograph Transferrer Relationship Specialty Start Date End Date Jyotsna Sewell APRN-CNP PCP - General Family Medicine 04/09/21 documented as of this encounter
--- OUTSIDE RECORDS SUMMARY | 2025-05-24 09:40 | XMS_ITS | Encounter Summary ---
Author Organization [employer] Address [id number] [address] [place] [address] Care Team Providers Care Wharf Tally Clerk Name Role Phone Jyotsna Sewell APRN-DIRECTOR OF MEDIA Primary Care Provid er Reason for Visit * Reason Comments Med Refill Encounter Details Date Type Department Care Team (Late st Contact Info) Description 12/20/2024 Refill [facility] - Family Medicine [address] [place] [phone] Jyotsna Sewell APRN-DIRECTOR OF MEDIA [address] PM 04/24/25 [place] [address] Acute cough Social History Tobacco Use Types Packs/Day Years Used Date Smoking Tobacco: Never Smokeless Tobacco: Never Alcohol Use Standard Drinks/Week Comments Never 0 (1 standard drink = 0.6 oz pur e alcohol) PHQ-2 Answer Date Recorded Total Score 0 09/07/2024 Childcare Answer Date Recorded Childcare Unknown 04/06/2019 Employment Answer Date Recorded Employment Unknown 04/06/2019 Hunger Screening Answer Date Recorded Within the past 12 months we worried whether our food would run out before we got money to buy more. Never True 07/12/2024 Within the past 12 months th e food we bought just didn't last and we didn't have money to get more. Never True 07/12/2024 Purpose - Life Answer Date Recorded Purpose [...] Internal Medicine - Family Medicine [address] [place] [address] Solomon Ramirez, MAT CLEANING MACHINE OPERATOR-DIRECTOR OF MEDIA [address] [place] [address] documented as of this encounter Visit Diagnoses Diagnosis Acute cough documented in this encounter Additional Health Concerns Assessment Noted Time PHQ-9 Depression Total Score: 0 09/07/20 24 4:00 PM EST A Body Mass Index follow-up plan has been documented for the patient 09/08/2024 8:36 AM EST documented as of this encounter Care Teams Wharf Tally Clerk Relationship Specialty Start Date End Date Jyotsna Sewell, MAT CLEANING MACHINE OPERATOR-DIRECTOR OF MEDIA PCP - General Family Medicine 04/09/21 documented as of this encounter
--- OUTSIDE RECORDS SUMMARY | 2025-05-24 09:40 | XMS_ITS | Encounter Summary ---
Author Organization [employer] Address [id number] [address] [place] [address] Care Team Providers Care Cyanide Pot Tender Name Role Phone Jyotsna Sewell APRN-SUPERINTENDENT NONSELLING Primary Care Provid er Reason for Visit * Reason Onset Date Comments Med Refill 03/06/2023 Encounter Details Date Type Department Care Team (Late Contact Info) Description 03/06/2023 Refill [facility] - Family Medicine [address] [place] [phone] Jyotsna Sewell APRN-SUPERINTENDENT NONSELLING [address] 04/24/25 [place] [phone] Drug-induced constipation Social History Tobacco Use Types Packs/Day Years Used Date Smoking Tobacco: Never Smokeless Tobacco: Never Alcohol Use Standard Drinks/Week Comments Never 0 (1 standard drink = 0.6 oz pur e alcohol) PHQ-2 Answer Date Recorded Total Score 0 02/02/2023 Childcare Answer Date Recorded Childcare Unknown 04/06/2019 [...] Internal Medicine - Family Medicine [address] [place] [address] Solomon Ramirez, ORGANIC PREPARATION ANALYST-SUPERINTENDENT NONSELLING [address] [place] [address] documented as of this encounter Visit Diagnoses Diagnosis Drug-induced constipation Other constipation documented in this encounter Additional Health Concerns Assessment Noted Time PHQ-9 Depression Total Score: 0 02/03/20 23 4:09 PM EDT A Body Mass Index follow-up plan has been documented for the patient 02/09/2023 8:42 AM EDT documented as of this encounter Care Teams Cyanide Pot Tender Relationship Specialty Start Date End Date Jyotsna Sewell, TEO-SUPERINTENDENT NONSELLING PCP - General Family Medicine 04/09/21 documented as of this encounter
--- OUTSIDE RECORDS SUMMARY | 2025-05-24 09:40 | XMS_ITS | Encounter Summary ---
Author Organization [employer] Address [id number] [address] [place] [address] Care Team Providers Care Director Strategy Name Role Phone Jyotsna Sewell APRN-JOHN Primary Care Provid er Encounter Details Date Type Department Care Team (Late Contact Info) Description 03/27/2023 Orders Only [facility] - Family Medicine [address] [place] [phone] Jyotsna Sewell APRN-ROTARY DRILL OPERATOR [address] 04/24/25 [place] [phone] Chronic idiopathic constipation Social History Tobacco Use [...] Description 09/13/2025 4:00 PM EST [facility] [address] [place] [address] Solomon Ramirez, VICE PRESIDENT UNDERWRITING-ROTARY DRILL OPERATOR [address] [place] [address] documented as of this encounter Visit Diagnoses Diagnosis Chronic idiopathic constipation Unspecified constipation documented in this encounter Additional Health Concerns Assessment Noted Time PHQ-9 Depression Total Score: 0 02/03/20 23 4:09 PM EDT A Body Mass Index follow-up plan has been documented for the patient 02/09/2023 8:42 AM EDT documented as of this encounter Care Teams Director Strategy Relationship Specialty Start Date End Date Jyotsna Sewell, VICE PRESIDENT UNDERWRITING-ROTARY DRILL OPERATOR PCP - General Family Medicine 04/09/21 documented as of this encounter
--- OUTSIDE RECORDS SUMMARY | 2025-05-24 09:40 | XMS_ITS | Patient Health Record ---
Author Organization [facility] vices Address [address] [place], [place] [address] Care Team Providers Care Exceptional Children'S Teacher Name Role Phone Brittni To Unavailable [phone] Violet Pierre Unavailable [phone] Allergies No Known Allergies Reason For Referral Reason Eval and restore dec ay Diagnosis 1 Dental caries into d entine (K02.62) Referral Organization [facility] Referring Provider First Name Violet Referring Provider Last Name Gabby Referring Provider Speciality Dental Gen [facility] Practice Referred Provider [facility], Dental - Pediatric Referred Provider Specialty Pediatric de ntist General Notes Violet Pierre 09/25 02:24:28 PM >Hard copy given to the patient in operatory. Patient verbally understands referral process., Teri Venegas 01/30/2025 06:28:49 PM >Called and spoke with Caregiver, she was not able to get pt scheduled at referred office. they could not accept him due to his insurance. Caregiver has called several places and has not had any luck. She did schedule pt for his next cleaning to discuss further with provider.Theo Michelle 03/14/2025 11:10:23 AM >2nd attempt to follow up on referral. Need to see if pt needs a new referral elsewhere., Elizabeth Farmer 03/16/2025 08:48:15 AM >Caregiver called back stating she is unable to schedule pt with [facility] due to looking to schedule in a hospital setting. Marking referreal as addressed. Referral Priority Routine Reason Please complete exam and treat any needs necessary Diagnosis 1 Encounter for dental examination and cleaning without abnormal findings (Z01.20) Referral Organization [facility] Referring Provider First Name Violet Referring Provider Last Name Gabby Referring Provider Speciality Dental Gen eral Practice Referred Provider [facility] , Dentistry Referred Provider Specialty Dental Care General Notes HanysulemaMalorieViolet 02/24 12:15:21 PM >Hard copy given to the patient in operatory. Patient verbally understands referral process., Elizabeth Farmer 04/06/2025 11:31:28 AM >1st attempt to contact pt Theo RUIZ Michelle 04/06/2025 03:02:04 PM >Caregiver called back and was advised by [facility] they are not accepting new patients but to call in and check for cancellations. Referral Priority Routine Reason Please complete [facility] exam and treat all needs if necessary Diagnosis 1 Encounter for dental examination and cleaning without abnormal findings (Z01.20) Referral Organization [facility] Referring Provider First Name Violet Referring Provider Last Name Gabby Referring Provider Speciality Dental [facility] Referred Provider [facility] Referred Provider Specialty Dental Care General Notes Gabby Violet 02/24 12:16:40 PM >Hard copy given to the patient in operatory. Patient verbally understands referral process., Elizabeth Farmer 04/06/2025 11:31:41 AM >1st attempt to contact pt Theo RUIZ Michelle 04/06/2025 03:04:24 PM >Caregiver called back and states pt was given a packet to complete and send back. She is not sure if this means patient will then be scheduled or what the next step will be. Referral Priority Routine Medications Medication SIG (Take, Route, Frequency, Duration) Notes Start Date End Date Status Cetirizine HCl 10 MG 1 tablet Orally Onc e a day Active carBAMazepine 200 MG Oral for 30 Days Active Furosemide 20 MG Oral for 30 Days Active Levothyroxine Sodium 125 MCG Oral for 30 Days Active Tylenol 325 MG 1 tablet as needed Orally every 6 hrs Active Pantoprazole Sodium 40 MG Oral for 30 Days Active Lactulose Active OXcarbazepine 300 MG Oral for 30 Days Active Acetaminophen 325 MG 1 capsule as needed Orally every 6 hrs Active QUEtiapine Fumarate 200 MG Oral for 30 Days Active Bisacodyl 10 MG 1 suppository as nee ded Rectal Once a day Active risperiDONE 0.5 MG Oral for 30 Days Active Vitamin D 50 MCG (2000 UT) 1 tablet Oral ly Once a day Active Trihexyphenidyl HCl 2 MG 1 tablet Orally Twice a day Active Polyeth Glyc-Propylene Glyc Active Social History Sex Assigned At : Social History Observation Description Sex Assigned At Male Problems Problem Type SNOMED Code ICD Code Onset Dates Problem Status W/U Status Risk Notes Problem Acne (13613745) Acne NEC (706.1) (706.1) 008 Active confirmed Problem Absence of bladder continence (163918184) Absence of bladder continence (R32) Active confirmed Description:Ur inary incontinence Problem Severe mental retardation (Intelligence Quotient 20-34) (10322614) Severe mental retardation (318.1) (318.1) Active confirmed Problem Dysthymia (07289996) Disorder, dysthymic (300.4) (300.4) Active confirmed Problem 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) Down's syndrome (758.0) (758.0) Active confirmed Problem 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, 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) Active confirmed Problem Incontinence of feces (97355420) Alteration in bowel elimination: incontinence (R15.9) Active confirmed Description:In continence of feces Vital Signs Height-cm 162.56 cm 10/10/2024 Weight-kg 80.74 kg 10/10/2024 Height 64 in 10/10/2024 Weight 178 lbs 10/10/2024 BMI 30.55 kg/m2 10/10/2024 Encounters Encounter Location Date Provider Diagnosis [facility] [address] [place] [id number] 10/10/2024 Violet Pierre Plan Of Treatment Next Appt Details Provider Name:Violet Pierre , 06/13/2025 01:45:00 PM, [address] [place] [address], [id number], Insurance Providers Payer Name Payer Address Payer Phone Subscriber Number Group Number Insured Name Patient Relationship to Insured Coverage Start Date Coverage End Date DMedicaid [address] [place], [place] [id number] Prince Beckham Self - patient is the insured 2 Medical (General) History Medical History History ICD Code Down syndrome Hypothyroidism Surgical History Surgery Date(Month/Year) SURGICAL: No previous surgery, ProblemSt atus: Active, 2008-02-09
--- OUTSIDE RECORDS SUMMARY | 2025-05-24 09:40 | XMS_ITS | Clinical Summary ---
Author Organization [facility] Address [address] [place] [address] Care Team Providers Care Screen Roller Name Role Phone Jyotsna Sewell Unavailable [phone] Unallocated, [facility] Provider Primary Care Provi ana Allergies No known active allergies Medications lactulose (Chronulac) 10 GM/15ML solution 4 Active senna-docusate (Deirdre-Colace) 8.6-50 MG tablet Take 1 tablet by mouth in the morning and 1 tablet before bedtime. 3 Active bisacodyl (Dulcolax) 10 MG suppository Insert 1 suppository into the rectum Daily 3 Active cetirizine (ZyrTEC) 10 MG tablet Take 1 tablet by mouth Daily 3 Active QUEtiapine (SEROquel) 200 MG tablet Take 200 mg by mouth at bedtime Active QUEtiapine (SEROquel) 400 MG tablet Take 400 mg by mouth at bedtime Active pantoprazole (ProtoNix) 40 MG EC tablet Take 1 tablet by mouth Daily 3 Active levothyroxine (Synthroid, Levoxyl) 75 MCG tablet Take 137 mcg by mouth in the morning. Take before meals. Active furosemide (Lasix) 20 MG tablet Take 1 tablet by mouth Daily 3 Active OXcarbazepine (Trileptal) 300 MG tablet Take 300 mg by mouth in the morning and 300 mg before bedtime. 3 Active carBAMazepine (TEGretol) 200 MG tablet Take 200 mg by mouth Daily Active acetaminophen (Tylenol) 325 MG tablet Take 325 mg by mouth 2 (two) times a day as needed 3 Active trihexyphenidyl (Artane) 2 MG tablet Take 2 mg by mouth in the morning and 2 mg before bedtime. 3 Active risperiDONE (RisperDAL) 2 MG tablet 2 mg at bedtime 1 tablet in the am 1.5 tablet in the afternoon and 1 tablet in the evening Active risperiDONE (RisperDAL) 0.5 MG tablet Take 0.5 mg by mouth Daily At noon Active risperiDONE (RisperDAL) 1 MG tablet Take 1 mg by mouth in the morning and 1 mg in the evening and 1 mg before bedtime. Active pseudoephedrine- APAP-DM 30-325-15 MG capsule Take 30 mg by mouth every 6 (six) hours if needed 3 Active cyanocobalamin (Vitamin B-12) 50 MCG tablet Take 50 mcg by mouth Daily Active montelukast (Singulair) 10 MG tablet Take 10 mg by mouth Daily Active Dextromethorphan -Pyrilamine ([place] DM) 7.5-7.5 MG/5ML liquid Take by mouth Active calcitonin, salmon, (Miacalcin) 200 UNIT/ACT nasal sprayIndications :Compression fracture of L2 vertebra, initial encounter ([facility]) Administer 1 spray into one nostril Daily 3.7 mL 4 Active Additional Information Patient not taking.Reported on 09/05/2024 cholecalciferol (Vitamin D-3) 50 MCG (1999 UT) tablet 4 Active levothyroxine (Synthroid, Levoxyl) 137 MCG tablet 4 Active polyethylene glycol, PEG, 3350 (Miralax) 17 g packet Take 17 g by mouth Daily Active Cyanocobalamin (B-12) [address] 500 mcg under the tongue Daily Active Active Problems Problem Noted Date Diagnosed Date Epilepsy 03/10/2024 Intractable epilepsy without status epilepticus 03/10/2024 Overview (03/10/2024): It is my impression that the patient has Down syndrome and has intractable epilepsy secondary to this. However, thankfully he has been seizure-free for many years. CT of the brain in 2013 comparison to 2017 are unremarkable. Recent labs unremarkable. PLAN: - Continue carbamazepine 200 mg in am - Continue oxcarbazepine 300 mg po bid - CBC CMP and medication levels prior to follow up, order printed on facility documentation Behavioral and emotional disorder with onset in childhood 03/10/2024 Overview (03/10/2024): The patient does have issues as it relates to behavior and is on medication for this. He does seem to be doing quite well and this seems to be quite controlled. He is easily redirectable at today's visit. He is accompanied by his caregiver who has no acute concerns today. Down syndrome ([facility]) 01/26/2019 Overview (03/10/2024): Patient has Down syndrome with intractable epilepsy. See above Encounters Date Type Department Care Team Description 03/22/2025 4:20 PM EDT Office Visit [facility] [address] [place] [phone] Myra Collado NP Intractable epilepsy without status epilepticus, unspecified epilepsy type (HCC) (Primary Dx); Medication monitoring encounter; Down syndrome ([facility]); Behavioral and emotional disorder with onset in childhood from Last 3 Months Social History Tobacco Use Types Packs/Day Years Used Date Smoking Tobacco: Never Smokeless Tobacco: Never Tobacco Cessation:Counseling Given: Not Answered Alcohol Use Standard Drinks/Week Comments Never 0 (1 standard drink = 0.6 oz pur e alcohol) Sex and Gender Information Value Date Recorded Sex Assigned at Not on file Legal Sex Male 7:37 PM EDT Gender Identity Not on file Sexual Orientation Not on file Last Filed Vital Signs Vital Sign Reading Time Taken Comments Blood Pressure 126/81 06/23/2018 12:00 PM EDT Pulse - - Temperature - - Respiratory Rate - - Oxygen Saturation - - Inhaled Oxygen Concentration - - Weight 82.6 kg (182 lb) 09/05/2024 10:58 AM EST Height 152.4 cm (5') 03/14/2024 8:52 AM EDT Body Mass Index 35.54 03/14/2024 8:52 AM EDT Plan of Treatment Health Maintenance Due Date Last Done Comments Influenza Vaccine (#1) 2025 , 08/13/2023, 07/16/2022, Additional history exists Medicare Annual Wellness (AWV) 09/07/2025 1 11/07/2023, 08/31/2023, 07/16/2022, Additional history exists Insurance [place]ICAID [place] MEDICARE Care Teams Screen Roller Relationship Specialty Start Date End Date Unallocated, [facility] Provider, [address] [place] [address] PCP - General Family Medicine 07/04/24 Jyotsna Sewell CRNP Referring Physician Nurse Practitioner 03/14/24
--- OUTSIDE RECORDS SUMMARY | 2025-05-24 09:40 | XMS_ITS | Encounter Summary ---
Author Organization [employer] [facility] Address [facility] [id number] [address] [place] [address] Care Team Providers Care Assessment Manager Name Role Phone Jyotsna Sewell Primary Care Provid er Encounter Details Date Type Department Care Team (Late st Contact Info) Description 03/26/2023 Telephone [facility] - Family Medicine [address] [place] [address] Marlene Do CMA Social History [...] Telephone Encounter - Marlene Do CMA - 03/26/2023 3:58 PM EDT Genaro from [facility] called, said the glycolax is not effective any longer, they are asking if they should she d/c or change dosage? * Telephone Encounter - MADIHA Orr - 03/26/2023 3:58 PM EDT I called the house rn directly last week (Alexa). Medication in concern was lactulose. Dose was increased. documented in this encounter Plan of Treatment Upcoming Encounters Date Type Department Care Team (Late st Contact Info) Description 09/13/2025 4:00 PM EST Office Visit [facility] - Family Medicine [address] [place] [address] Solomon Ramirez, TEO-JOHN [address], [address] [address] documented as of this encounter Visit Diagnoses Not on filedocumented in this encounter Additional Health Concerns Assessment Noted Time PHQ-9 Depression Total Score: 0 02/03/20 23 4:09 PM EDT A Body Mass Index follow-up plan has been documented for the patient 02/09/2023 8:42 AM EDT documented as of this encounter Care Teams Assessment Manager Relationship Specialty Start Date End Date Jyotsna Sewell APRN-CNP PCP - General Family Medicine 04/09/21 documented as of this encounter
--- OUTSIDE RECORDS SUMMARY | 2025-05-24 09:40 | XMS_ITS | Encounter Summary ---
Author Organization [facility] Address [id number] [address] [place] [address] Care Team Providers Care Water Gas Operator Name Role Phone Jyotsna Sewell APRN-PREVENTIVE MAINTENANCE ENGINEER Primary Care Provid er Reason for Visit * Reason Comments Med Refill Encounter Details Date Type Department Care Team (Late st Contact Info) Description 08/01/2022 Refill [facility] [address] [place] [address] Jyotsna Sewell APRN-PREVENTIVE MAINTENANCE ENGINEER [address] PM 04/24/25 [place] [phone] Vitamin D deficiency Social History Tobacco Use Types Packs/Day Years Used Date Smoking Tobacco: Never Smokeless Tobacco: Never Alcohol Use Standard Drinks/Week Comments Never 0 (1 standard drink = 0.6 oz pur e alcohol) PHQ-2 Answer Date Recorded Total Score 0 07/16/2022 Childcare Answer Date Recorded Childcare Unknown 04/06/2019 [...] have Coronavirus / COVID-19? No / Unsure 07/16/2022 8:22 AM EDT documented as of this encounter Plan of Treatment Upcoming Encounters Date Type Department Care Team (Late st Contact Info) Description 09/13/2025 4:00 PM EST Office Visit [facility] - Family Medicine [address] [place] [address] Solomon Ramirez, TRANSPORTATION SECURITY SCREENER-PREVENTIVE MAINTENANCE ENGINEER [address], [facility] [address] [place] [address] documented as of this encounter Visit Diagnoses Diagnosis Vitamin D deficiency documented in this encounter Additional Health Concerns Assessment Noted Time PHQ-9 Depression Total Score: 0 07/16/20 8:24 AM EDT A Body Mass Index follow-up plan has been documented for the patient 07/16/2022 9:44 AM EDT documented as of this encounter Care Teams Water Gas Operator Relationship Specialty Start Date End Date Jyotsna Sewell, TEO-PREVENTIVE MAINTENANCE ENGINEER PCP - General Family Medicine 04/09/21 documented as of this encounter
--- OUTSIDE RECORDS SUMMARY | 2025-05-24 09:40 | XMS_ITS | Encounter Summary ---
Author Organization [employer] Address [id number] [address] [place] [address] Care Team Providers Care Antique Furniture Repairer Name Role Phone Jyotsna Sewell APRN-CUSTOMER SOLUTIONS REPRESENTATIVE Primary Care Provid er Reason for Visit * Reason Comments Med Refill Encounter Details Date Type Department Care Team (Late st Contact Info) Description 01/01/2023 Refill [facility] [address] [place] [phone] Jyotsna Sewell APRN-CUSTOMER SOLUTIONS REPRESENTATIVE [address] PM 04/24/25 [place] [phone] Seizure disorder (CMS-HCC) (Primary Dx) Social History Tobacco Use Types Packs/Day Years Used Date Smoking Tobacco: Never Smokeless Tobacco: Never Alcohol Use Standard Drinks/Week Comments Never 0 (1 standard drink = 0.6 oz pur e alcohol) PHQ-2 Answer Date Recorded Total Score 0 10/22/2022 Childcare Answer Date Recorded Childcare Unknown 04/06/2019 [...] have Coronavirus / COVID-19? No / Unsure 12/19/2022 7:57 AM EST documented as of this encounter Plan of Treatment Upcoming Encounters Date Type Department Care Team (Late st Contact Info) Description 09/13/2025 4:00 PM EST Office Visit [facility] - Family Medicine [address] [place] [address] Solomon Ramirez, STROKE COORDINATOR-CUSTOMER SOLUTIONS REPRESENTATIVE [address], [facility] [address] [place] [address] documented as of this encounter Visit Diagnoses Diagnosis Seizure disorder ([facility])- Primary Unspecified epilepsy without mention of intractable epilepsy documented in this encounter Additional Health Concerns Assessment Noted Time PHQ-9 Depression Total Score: 0 10/22/20 22 3:35 PM EST A Body Mass Index follow-up plan has been documented for the patient 10/22/2022 6:42 PM EST documented as of this encounter Care Teams Antique Furniture Repairer Relationship Specialty Start Date End Date Jyotsna Sewell, STROKE COORDINATOR-CUSTOMER SOLUTIONS REPRESENTATIVE PCP - General Family Medicine 04/09/21 documented as of this encounter
--- OUTSIDE RECORDS SUMMARY | 2025-05-24 09:40 | XMS_ITS | Encounter Summary ---
Author Organization [employer] [facility] Address [id number] [address] [place] [address] Care Team Providers Care Dental Laboratory Technician Apprentice Name Role Phone Jyotsna Sewell APRN-ENERGY SALES BROKER Primary Care Provid er Encounter Details Date Type Department Care Team (Late st Contact Info) Description 01/11/2024 Telephone [facility] - Family Medicine [address] [place] [address] Phoebe Giang CMA Social History Tobacco Use Types Packs/Day Years Used Date Smoking Tobacco: Never Smokeless Tobacco: Never Alcohol Use Standard Drinks/Week Comments Never 0 (1 standard drink = 0.6 oz pur e alcohol) PHQ-2 Answer Date Recorded Total Score 0 01/04/2024 Childcare Answer Date Recorded Childcare Unknown 04/06/2019 Employment Answer Date Recorded Employment Unknown 04/06/2019 Hunger Screening Answer Date Recorded Within the past 12 months we worried whether our food would run out before we got money to buy more. Never True 01/04/2024 Within the past 12 months th e food we bought just didn't last and we didn't have money to get more. Never True 01/04/2024 Purpose - Life Answer Date Recorded Purpose and direction in life Unknown Sex and Gender Information Value Date Recorded Sex Assigned at Not on file Legal Sex Male 11:26 AM EDT Gender Identity Not on file Sexual Orientation Not on file documented as of this encounter Miscellaneous Notes * Telephone Encounter - Phoebe Giang CMA - 01/11/2024 12:06 PM EDT Genaro caregiver for Prince called and wanted to know if you wanted to see patient he has the flu. Ptis tolerating fluids but just has diarrhea still. If not they will continue fluids and keep him home. * Telephone Encounter - MADIHA Orr - 01/11/2024 12:06 PM EDT Keep home and monitor symptoms. * Telephone Encounter - Phoebe Giang CMA - 01/11/2024 12:06 PM EDT Informed staff documented in this encounter Plan of Treatment Upcoming Encounters Date Type Department Care Team (Late st Contact Info) Description 09/13/2025 4:00 PM EST Office Visit [facility] - Family Medicine [address] [place] [address] Solomon Ramirez, MADIHA [address], [address] [address] documented as of this encounter Visit Diagnoses Not on filedocumented in this encounter Additional Health Concerns Assessment Noted Time PHQ-9 Depression Total Score: 0 01/04/20 24 1:55 PM EDT A Body Mass Index follow-up plan has been documented for the patient 01/04/2024 2:32 PM EDT documented as of this encounter Care Teams Dental Laboratory Technician Apprentice Relationship Specialty Start Date End Date Jyotsna Sewell APRN-CNP PCP - General Family Medicine 04/09/21 documented as of this encounter
--- OUTSIDE RECORDS SUMMARY | 2025-05-24 09:40 | XMS_ITS | Encounter Summary ---
Author Organization [email or web address] Address [id number] [address] [place] [address] Care Team Providers Care Manager Chemical Name Role Phone Jyotsna Sewell APRN-CHEMICAL OPERATOR Primary Care Provid er Reason for Visit * Reason Comments Med Refill Encounter Details Date Type Department Care Team (Late st Contact Info) Description 09/04/2022 Refill [facility] [address] [place] [phone] Jyotsna Sewell APRN-CHEMICAL OPERATOR [address] PM 04/24/25 [place] [phone] Acquired hypothyroidism Social History Tobacco Use Types Packs/Day Years Used Date Smoking Tobacco: Never Smokeless Tobacco: Never Alcohol Use Standard Drinks/Week Comments Never 0 (1 standard drink = 0.6 oz pur e alcohol) PHQ-2 Answer Date Recorded Total Score 0 09/08/2022 Childcare Answer Date Recorded Childcare Unknown 04/06/2019 [...] have Coronavirus / COVID-19? No / Unsure 08/15/2022 3:11 PM EDT documented as of this encounter Plan of Treatment Upcoming Encounters Date Type Department Care Team (Late st Contact Info) Description 09/13/2025 4:00 PM EST Office Visit [facility] - Family Medicine [address] [place] [address] Solomon Ramirez, INTELLIGENCE SPECIALIST-CHEMICAL OPERATOR [address] [facility] [address] [place] [address] documented as of this encounter Visit Diagnoses Diagnosis Acquired hypothyroidism Unspecified hypothyroidism documented in this encounter Additional Health Concerns Assessment Noted Time PHQ-9 Depression Total Score: 0 07/16/20 8:24 AM EDT A Body Mass Index follow-up plan has been documented for the patient 07/16/2022 9:44 AM EDT documented as of this encounter Care Teams Manager Chemical Relationship Specialty Start Date End Date Jyotsna Sewell, TEO-CHEMICAL OPERATOR PCP - General Family Medicine 04/09/21 documented as of this encounter
[2025-05-24 11:01] LABS: Iron 77.0 ug/dL (65.0-175.0); Percent Iron Saturation 26.6 %; Total Iron Binding Capacity 289.0 ug/dL (250.0-450.0)
[2025-05-24 11:08] LABS: Cholesterol 213 mg/dL (<=200); HDL Cholesterol 79 mg/dL (40-60); Thyroid Stimulating Hormone 7.153 uIU/mL (0.358-3.740); Triglycerides 37 mg/dL (<=150); VLDL CHOLESTEROL 7.4 mg/dL
== END 2025-05-24 09:29 | disposition home or self-care (01) ==
PROVIDERS: PCP Nurse Practitioner; Visit Provider Nurse Practitioner
DX: E03.9 Hypothyroidism, unspecified (principal); E55.9 Vitamin D deficiency, unspecified; G40.909 Epilepsy, unspecified, not intractable, without status epilepticus; F81.89 Other developmental disorders of scholastic skills; K59.03 Drug induced constipation; Z79.899 Other long term (current) drug therapy; F63.81 Intermittent explosive disorder
CPT/HCPCS: 36415; 80061; 83540; 83550; 84436; 84443

== ENCOUNTER 2025-05-24 09:39 | Outpatient (OUT) | payer MEDICARE, MEDICAID, SELFPAY ==
[2025-05-24 10:19] LABS: Hematocrit 41.9 % (42.0-54.0); Hemoglobin 14.3 g/dL (14.0-18.0); Immature Granulocytes Abs Auto 0.01 10^3/uL (0.00-0.03); Immature Granulocytes Pct Auto 0.2 % (0.0-0.5); Lymphocytes Absolute Auto 1.2 10^3/uL (1.2-3.8); Mean Corpuscular HGB Conc 34.1 g/dL (29.9-35.2); Mean Corpuscular Hemoglobin 34.4 pg (25.9-34.0); Mean Corpuscular Volume 100.7 fL (80.0-94.0); Platelet Count 326 10^3/uL (150-450); Red Blood Count 4.16 10^6/uL (4.70-6.10); White Blood Count 5.1 10^3/uL (4.0-11.0)
[2025-05-24 11:32] LABS: Alanine Aminotransferase 23 U/L (16-63); Albumin Globulin Ratio 0.8; Albumin Level 3.6 g/dL (3.4-5.0); Alkaline Phosphatase 138 U/L (46-116); Anion Gap 13.4; Aspartate Amino Transferase 20 U/L (15-37); Blood Urea Nitrogen 16.0 mg/dL (7.0-18.0); Calcium 8.6 mg/dL (8.5-10.1); Carbon Dioxide 29.0 mmol/L (21.0-32.0); Chloride 100 mmol/L (98-107); Estimated GFR (African America >60 (>=60 mL/min/1.73m^2); Estimated GFR (Non-African Ame >60 (>=60 mL/min/1.73m^2); Globulin 4.5 g/dL; Glucose 111 mg/dL (74-106); Potassium 4.4 mmol/L (3.5-5.1); Sodium 138 mmol/L (136-145); Total Protein 8.1 g/dL (6.4-8.2)
[2025-05-25 08:13] LABS: Carbamazepine(Tegretol),S 4.7 ug/mL (4.0-12.0)
== END 2025-05-24 09:40 | disposition home or self-care (01) ==
PROVIDERS: PCP Nurse Practitioner; Visit Provider Nurse Practitioner Family
DX: Z51.81 Encounter for therapeutic drug level monitoring (principal); E03.9 Hypothyroidism, unspecified; K59.03 Drug induced constipation; E55.9 Vitamin D deficiency, unspecified; G40.909 Epilepsy, unspecified, not intractable, without status epilepticus; F81.89 Other developmental disorders of scholastic skills; Z79.899 Other long term (current) drug therapy; F63.81 Intermittent explosive disorder
CPT/HCPCS: 36415; 80053; 80061; 80156; 80183; 83540; 83550; 84436; 84443; 85025

== ENCOUNTER 2025-10-20 07:36 | Outpatient (OUT) | payer MEDICARE, MEDICAID, SELFPAY ==
--- OUTSIDE RECORDS SUMMARY | 2025-10-20 07:40 | XMS_ITS | Clinical Summary ---
Author Organization [facility] Address [address], [address] [place] [address] Care Team Providers Care Geometry Professor Name Role Phone Jyotsna Sewell MIXER RUNNER - COLD WORKING INSPECTOR Primary Care Prov ider Allergies Active AllergyReactionsCriticalityNoted IjqiSblaigouUfoslbkx54/15/2014Other 01/25/2019 Saunders dye- agitation Red Dye #40 (Allura Red)05/23/2016 Other reaction(s): Agitation Medications MedicationSigDispense QuantityRefillsLast FilledStart DateEnd DateStatus QUEtiapine (SEROQUEL) 100 MG tablet Take 200 mg by mouth 2 times dailyActive QUEtiapine (SEROQUEL) 100 MG tablet Take 400 mg by mouth nightlyActive risperiDONE (RISPERDAL) 1 MG tablet Take 1 mg by mouth dailyActive risperiDONE (RISPERDAL) 2 MG tablet Take 2 mg by mouth nightlyActive hydrocortisone 1 % cream Apply 1 each topically 3 times daily as needed (Rash) Apply topically 2 times daily.Active risperiDONE (RISPERDAL) 1 MG tablet Take 1.5 mg by mouth Daily with lunchActive acetaminophen (TYLENOL) 325 MG tablet Take 650 mg by mouth every 6 hours as needed for PainActive nystatin (MYCOSTATIN) 863520 UNIT/GM cream Apply 1 applicator topically 2 times daily as needed for Dry Skin Apply topically 2 times daily. 60 g 507Active fluocinonide (LIDEX) 0.05 % cream Apply 1 applicator topically 2 times daily Apply topically 2 times daily. 30 g 109Active carBAMazepine (TEGRETOL) 200 MG tablet Take 1 tablet by mouth every morning 90 tablet 310Active Dextromethorphan-guaiFENesin (MUCINEX DM) 30-600 MG TB12 Take 1 tablet by mouth 2 times daily 20 tablet 01/13/2020Active polyethylene glycol (GLYCOLAX) 17 GM/SCOOP powder Indications:Constipation, unspecified constipation typeTake 17 g by mouth daily 1 Bottle Active polyethylene glycol (GLYCOLAX) 17 g packet Indications:Constipation, unspecified constipation typeTake 17 g by mouth every other day 30 each Active levothyroxine (SYNTHROID) 88 MCG tablet Take 1 tablet by mouth Daily 90 tablet ctive vitamin D3 (CHOLECALCIFEROL) 25 MCG (1000 UT) TABS tablet GIVE 2 TABLETS (2000 UNITS) BY MOUTH ONCE DAILY 180 tablet ctive trihexyphenidyl (ARTANE) 2 MG tablet GIVE 1/2 TABLET (1MG) BY MOUTH TWICE DAILY *OK TO SPLIT* 180 tablet ctive OXcarbazepine (TRILEPTAL) 300 MG tablet GIVE 1 TABLET BY MOUTH TWICE DAILY 180 tablet 10/06/2022ctive furosemide (LASIX) 20 MG tablet GIVE 1 TABLET BY MOUTH ONCE DAILY 90 tablet ctive pantoprazole (PROTONIX) 40 MG tablet TAKE 1 TABLET BY MOUTH ONCE DAILY 30 tablet 05/04/2023ctive Active Problems Patient Care Coordination No te Formatting of this note migh t be different from the original. nHpredict in media. Recommendation SNF, but neuro mitts + high flow oxygen require LTAC Variation noted - [facility]. ProblemNoted DateDiagnosed DateSeizure mztyhfdw69/10/2019Congestive heart failure (CHF)03/04/2019Acquired acddgciswqkkrb67/10/2019Severe intellectual fyuwliexhk83/03/2019Pericardial nogojmoi84/02/2019Mental retardation, idiopathic gqfntn6306/02/2017 Overview (04/04/2019): Replacing deprecated diagnoses Chronic periodontal ewqqjei1808/08/2014Down syndromeDevelopment delayAutismOSA (obstructive sleep apnea) Resolved Problems ProblemNoted DateDiagnosed DateResolved DateAnemia, wblkgnuitjl43/10/2019 2349Bmfof54Concern for ulrlcdrpj44 Diarrhea, bqavwryarew731Acute respiratory failure with hypoxia 11/25/2019Acute viral dqbwbikelfpj64/10/2019 Immunizations ImmunizationAdministration DatesNext DueHep B, ENGERIX-B, RECOMBIVAX-HB, (age - 19y), IM, 0.5mL06/24/2000Influenza, FLUARIX, FLULAVAL, FLUZONE (age 6 mo+) and AFLURIA, (age 3 y+), Quadv PF, 0.5mL09/17/2020MMR, PRIORIX, M-M-R II, (age 12m+), SC, 0.5mL06/24/2000Pneumococcal, PPSV23, PNEUMOVAX 23, (age 2y+), SC/IM, 0.5mL03/04/2019TDaP, ADACEL (age 10y-64y), BOOSTRIX (age 10y+), IM, 0.5mL 03/04/2019 Social History Tobacco UseTypesPacks/DayYears UsedDateSmoking Tobacco: NeverSmokeless Tobacco: NeverAlcohol UseStandard Drinks/WeekCommentsNever0 (1 standard drink = 0.6 oz pure alcohol)AUDIT-CAnswerDate RecordedFrequency of Alcohol ConsumptionNever 01/25/2019Average Number of DrinksNot on file01/25/2019Frequency of Binge DrinkingNot on file01/25/2019Overall Financial Resource Strain (CARDIA)Answer Date RecordedHow hard is it for you to pay for the very basics like food, housing, medical care, and heating?Not hard at all12/10/2020HQ-2AnswerDate RecordedPHQ-9 Total Sfhpj286Hunger Vital SignAnswerDate RecordedWithin the past 12 months, you worried that your food would run out before you got the money to buymore.Never true12/10/2020Within the past 12 months, the food you bought just didn't last and you didn't have money to get more.Never true 1PRAPARE - TransportationAnswerDate RecordedIn the past 12 months, has lack of transportation kept you from medical appointments or from getting medications?No12/10/2020In the past 12 months, has lack of transportation kept you from meetings, work, or from getting things needed for daily living?No 12/10/2020ex and Gender InformationValueDate RecordedSex Assigned at BirthNot on fileLegal NkeXtpl8412/05/2012 5:59 PM ESTGender IdentityNot on fileSexual OrientationNot on file Last Filed Vital Signs Vital SignReadingTime TakenCommentsBlood Vwixfeyp670/7810 12:46 PM EDT Jpvxx385508/18/2023 12:46 PM UQUBqqzyctfgqn77.2 ??C (97.2 ??F)08/18/2023 12:46 PM EDTRespiratory Nvbb6383 12:46 PM EDTOxygen Imqnbvpegf91%08/18/2023 12:46 PM EDTInhaled Oxygen Concentration--Oygjox52.5 kg (186 lb 3.2 oz)12/10/2020 2:12 PM ERLOqhpml443.8 cm (5' 0.96 )12/10/2020 2:12 PM ESTBody Mass Index35.23 12/10/2020 2:12 PM EST Plan of Treatment Health MaintenanceDue DateLast DoneCommentsDepression Xmkxdb6805/07/1994HIV screen 1997Hepatitis C wgxpdn6505/07/2000Hepatitis B vaccine (2 of 3 - 3-dose series)Varicella vaccine (1 of 2 - 13+ 2-dose series) 07/22/2000Pneumococcal 0-49 years Vaccine (2 of 2 - PCV) Annual Wellness Visit (Medicare)/, 12/10/2020, 11/25/2019 Blnhdv86, 07/28/2019Flu vaccine (#1), 07/16/2022, 09/17/2020COVID-19 Vaccine (2 - 2024- season) DTaP/Tdap/Td vaccine (2 - Td or Tdap)Diabetes screen Gyinchaktpge68/30/2019, 07/28/2019, 03/04/2019HPV vaccine (No Doses Required) CompletedHepatitis A vaccineAged OutNo longer eligible based on patient's age to complete this topicHib vaccineAged OutNo longer eligible based on patient's age to complete this topicMeningococcal (ACWY) vaccineAged OutNo longer eligible based on patient's age to complete this topicMeningococcal B vaccineAged OutNo longer eligible based on patient's age to complete this topicPolio vaccineAged OutNo longer eligible based on patient's age to complete this topic Procedures Procedure NamePriorityDate/TimeAssociated DiagnosisCommentsHEMOGLOBIN O6GJjrhfpn 09/24/2019 7:29 AM EST LIPID ZZCVHOoxaroz43/30/2019 7:29 AM EST from Last 3 Months or Most Recently Relevant to Health Maintenance Results * Hemoglobin A1C (09/24/2019 7:29 AM EST)ComponentValueRef RangeTest Method Analysis TimePerformed AtPathologist SignatureHemoglobin A1C5.34.8 - 5.9 % 09/24/2019 7:29 AM [facility]Estimated Avg Argnxbr386 mg/dL09/24/2019 7:29 AM [facility]Comment: The ADA and AACC recommend providing the estimated average glucose result to permit better patient understanding of their HBA1c result. Specimen (Source)Anatomical Location / LateralityCollection Method / Volume Collection TimeReceived Time09/24/2019 7:29 AM EST09/24/2019 7:30 AM EST Narrative Authorizing ProviderResult TypeResult StatusTashi Acevedo MDCHEMISTRY ORDERABLESFinal ResultPerforming OrganizationAddressCity/State/ZIP CodePhone Number [facility] [address] [place] [address], [facility] [phone] * Lipid Panel (09/24/2019 7:29 AM EST)ComponentValueRef RangeTest MethodAnalysis TimePerformed AtPathologist DreuskiwyIwlhkozxwqr731<200 mg/dL09/24/2019 7:29 AM [facility]Comment: Cholesterol Guidelines: <200 Desirable 200-240 ??Borderline >240 Undesirable HDL72>40 mg/dL09/24/2019 7:29 AM [facility]: HDL Guidelines: <40 Undesirable 40-59 ?Borderline >59 Desirable LDL Ktolssbdmdh5727 - 130 mg/dL09/24/2019 7:29 AM [facility]Comment: LDL Guidelines: <100 Desirable 100-129 ?? Near to/above Desirable 130-159 ?? Borderline >159 Undesirable Direct (measured) LDL and calculated LDL are not interchangeable tests. Chol/HDL Ratio2.7< 7:29 AM [facility] Comment:Lgxuchxaulgja17<150 mg/dL09/24/2019 7:29 AM [facility]: Triglyceride Guidelines: <150 Desirable 150-199 ??Borderline 200-499 ??High >499 Very high Based on AHA Guidelines for fasting triglyceride, July 2012. VLDLNOT REPORTED1 - 30 mg/dL09/24/2019 7:29 AM [facility] LABSpecimen (Source)Anatomical Location / LateralityCollection Method / Volume Collection TimeReceived Time09/24/2019 7:29 AM EST09/24/2019 7:30 AM EST Narrative Authorizing ProviderResult TypeResult StatusTashi Acevedo MDCHEMISTRY ORDERABLESFinal ResultPerforming OrganizationAddressCity/State/ZIP CodePhone Number [facility] [address] [phone] from Last 3 Months or Most Recently Relevant to Health Maintenance Insurance Advance Directives TypeDate RecordedPatient RepresentativeExplanationACP-Guardianship04/13/2020 2:02 PM * Full Code (Latest Code Status on File) Date ActivatedDate InactivatedComments01/26/2019 4:14 AM02/09/2019 11:09 PM * Full Code Date ActivatedDate InactivatedComments01/25/2019 5:55 PM01/26/2019 2:46 AM Care Teams Team MemberRelationshipSpecialtyStart DateEnd Date Jyotsna Sewell, MIXER RUNNER - COLD WORKING INSPECTOR PCP - GeneralCertified Nurse Brynwyfyejes79/24/23
--- OUTSIDE RECORDS SUMMARY | 2025-10-20 07:40 | XMS_ITS | Clinical Summary ---
Author Organization [facility] Address [address] [place] [address] Care Team Providers Care Hem Marker Name Role Phone Jyotsna Sewell Unavailable [phone] Unallocated, [facility] Provider Primary Care Provi ana Allergies No known active allergies Medications MedicationSigDispense QuantityRefillsLast FilledStart DateEnd DateStatus lactulose (Chronulac) 10 GM/15ML solution 11/08/2023ctive senna-docusate (Deirdre-Colace) 8.6-50 MG tablet Take 1 tablet by mouth in the morning and 1 tablet before bedtime.08/31/2023 Active bisacodyl (Dulcolax) 10 MG suppository Insert 1 suppository into the rectum Daily06/10/2023ctive cetirizine (ZyrTEC) 10 MG tablet Take 1 tablet by mouth Daily06/10/2023ctive QUEtiapine (SEROquel) 200 MG tablet Take 200 mg by mouth at bedtimeActive QUEtiapine (SEROquel) 400 MG tablet Take 400 mg by mouth at bedtimeActive pantoprazole (ProtoNix) 40 MG EC tablet Take 1 tablet by mouth Daily05/04/2023ctive levothyroxine (Synthroid, Levoxyl) 75 MCG tablet Take 137 mcg by mouth in the morning. Take before meals.Active furosemide (Lasix) 20 MG tablet Take 1 tablet by mouth Daily07/08/2023ctive OXcarbazepine (Trileptal) 300 MG tablet Take 300 mg by mouth in the morning and 300 mg before bedtime.06/10/2023ctive carBAMazepine (TEGretol) 200 MG tablet Take 200 mg by mouth DailyActive acetaminophen (Tylenol) 325 MG tablet Take 325 mg by mouth 2 (two) times a day as xtctzt8106/10/2023ctive trihexyphenidyl (Artane) 2 MG tablet Take 2 mg by mouth in the morning and 2 mg before bedtime.07/08/2023ctive risperiDONE (RisperDAL) 2 MG tablet 2 mg at bedtime 1 tablet in the am 1.5 tablet in the afternoon and 1 tablet in the eveningActive risperiDONE (RisperDAL) 0.5 MG tablet Take 0.5 mg by mouth Daily At noonActive risperiDONE (RisperDAL) 1 MG tablet Take 1 mg by mouth in the morning and 1 mg in the evening and 1 mg before bedtime.Active hdnyyhizpcvohof-TOGA-ZT 30-325-15 MG capsule Take 30 mg by mouth every 6 (six) hours if lgjgbr8707/27/2023ctive cyanocobalamin (Vitamin B-12) 50 MCG tablet Take 50 mcg by mouth DailyActive montelukast (Singulair) 10 MG tablet Take 10 mg by mouth DailyActive Dextromethorphan-Pyrilamine ([place] DM) 7.5-7.5 MG/5ML liquid Take by mouthActive calcitonin, salmon, (Miacalcin) 200 UNIT/ACT nasal spray Indications:Compression fracture of L2 vertebra, initial encounter ([facility]) Administer 1 spray into one nostril Daily 3.7 mL 07/04/2024ctive Additional Information Patient not taking.Reported on 09/05/2024 cholecalciferol (Vitamin D-3) 50 MCG (2000 UT) tablet 05/09/2024ctive levothyroxine (Synthroid, Levoxyl) 137 MCG tablet 08/09/2024ctive polyethylene glycol, PEG, 3350 (Miralax) 17 g packet Take 17 g by mouth DailyActive Cyanocobalamin (B-12) [address] 500 mcg under the tongue DailyActive Active Problems ProblemNoted DateDiagnosed GlslHrmoduls44/16/2024Intractable epilepsy without status /16/2024 Overview (03/10/2024): It is my impression that [...] Behavioral and emotional disorder with onset in hxcspqujb27/16/2024 Overview (03/10/2024): The patient does have issues as it relates to behavior and is on medication for this. He does seem to be doing quite well and this seems to be quite controlled. He is easily redirectable at today's visit. He is accompanied by his caregiver who has no acute concerns today. Down syndrome ([facility])01/26/2019 Overview (03/10/2024): Patient has Down syndrome with intractable epilepsy. See above Social History Tobacco UseTypesPacks/DayYears UsedDateSmoking Tobacco: NeverSmokeless Tobacco: Never Tobacco Cessation:Counseling Given: Not Answered Alcohol UseStandard Drinks/WeekCommentsNever0 (1 standard drink = 0.6 oz pure alcohol)Sex and Gender InformationValueDate RecordedSex Assigned at BirthNot on fileLegal OftGczc0701/07/2023 7:37 PM EDTGender IdentityNot on fileSexual OrientationNot on file Last Filed Vital Signs Vital SignReadingTime TakenCommentsBlood Xtiuqyyo554/8108 12:00 PM EDT Pulse--Temperature--Respiratory Rate--Oxygen Saturation--Inhaled Oxygen Concentration--Alovmx10.6 kg (182 lb)09/05/2024 10:58 AM OOAGfjupi246.4 cm (5') 03/14/2024 8:52 AM EDTBody Mass Index35.54003/14/2024 8:52 AM EDT Plan of Treatment Health MaintenanceDue DateLast DoneCommentsInfluenza Vaccine (#1)06/26/2025 09/07/2024, 08/13/2023, 07/16/2022, Additional history existsMedicare Annual Wellness (AWV), 08/31/2023, 07/16/2022, Additional history existsPneumococcal Vaccine: Pediatrics (0 to 5 Years) and At-Risk Patients (6 to 64 Years)Aged OutNo longer eligible based on patient's age to complete this topic Insurance Care Teams Team MemberRelationshipSpecialtyStart DateEnd Date Unallocated, [facility] Provider, [address] [place] [address] PCP - GeneralFamily Medicine07/04/24 Jyotsna Sewell CRNP [address] [place] [address] Referring PhysicianNurse Practitioner03/14/24
--- OUTSIDE RECORDS SUMMARY | 2025-10-20 07:40 | XMS_ITS | Patient Health Record ---
Author Organization [facility] Address [address] [place], [place] [address] Care Team Providers Care Combat Control Name Role Phone Vashti Perez Unavailable [phone] Anaya Sim Unavailable [phone] Allergies No Known Allergies Reason For Referral Reason Please complete exam and treat any needs necessary Diagnosis 1 Encounter for dental examination and cleaning without abnormal findings (Z01.20) Referral Organization [facility] Referring Provider First Name Violet Referring Provider Last Name Gabby Referring Provider Speciality Dental [facility] Practice Referred Provider [facility] Referred Provider Specialty Dental Care General Notes Violet Pierre 02/24 12:15:21 PM >Hard copy given to the patient in operatory. Patient verbally understands referral process., Elizabeth Farmer 04/06/2025 11:31:28 AM >1st attempt to contact pt Theo RUIZ Michelle 04/06/2025 03:02:04 PM >Caregiver called back and was advised by [facility] they are not accepting new patients but to call in and check for cancellations. Referral Priority Routine Reason Please complete thor ou exam and treat all needs if necessary Diagnosis 1 Encounter for dental examination and cleaning without abnormal findings (Z01.20) Referral Organization [facility] Referring Provider First Name Violet Referring Provider Last Name Gabby Referring Provider Speciality Dental [facility] Practice Referred Provider [facility] Referred Provider Specialty Dental Care General Notes Violet Pierre 02/24 12:16:40 PM >Hard copy given to [...] next step will be. Referral Priority Routine Reason Comprehensive Care Diagnosis 1 Dental caries into d briseidane (K02.62) Diagnosis 2 Encounter for dental examination and cleaning with abnormal findings (Z01.21) Referral Organization [facility] Referring Provider First Name Anaya Referring Provider Last Name Chiquis Referring Provider Speciality Dental [facility] Practice Referred Provider [facility] - Pediatric Referred Provider Specialty Pediatric de ntist General Notes Teri Venegas 07/28 10:28:11 AM >1st attempt to follow up on referral spoke to house staff for pt, Violet. She says that they have not been able to find an office for pt, they are going to call pts insurance to see if they can provide a office that is in network., Tanika Rosas 09/25/2025 05:17:34 PM EST > There has been no referral follow up from patient's staff. Marking referral as addressed. Clinical Notes Anaya Sim 11/2024 01:14:37 PM >Hard Copy given to patient's caregiver Referral Priority Routine Medications Medication SIG (Take, Route, Frequency, Duration) Notes Start Date End Date Status Tylenol 325 MG Tablet 1 tablet as needed Orally every 6 hrs ActivePantoprazole Sodium 40 MG Tablet Delayed ReleaseOral; Duration: 30 Days ActiveLevothyroxine Sodium 125 MCG TabletOral; Duration: 30 DaysActiveFurosemide 20 MG TabletOral; Duration: 30 DaysActivecarBAMazepine 200 MG TabletOral; Duration: 30 DaysActiveCetirizine HCl 10 MG Tablet1 tablet Orally Once a day ActivePolyeth Glyc-Propylene GlycActiveTrihexyphenidyl HCl 2 MG Tablet1 tablet Orally Twice a dayActiveVitamin D 50 MCG (2000 UT) Tablet1 tablet Orally Once a dayActiveBisacodyl 10 MG Suppository1 suppository as needed Rectal Once a day ActiverisperiDONE 0.5 MG TabletOral; Duration: 30 DaysActiveAcetaminophen 325 MG Capsule1 capsule as needed Orally every 6 hrsActiveQUEtiapine Fumarate 200 MG TabletOral; Duration: 30 DaysActiveLactuloseActiveOXcarbazepine 300 MG Tablet Oral; Duration: 30 DaysActive Social History Sex Assigned At : Social History Observation Description Sex Assigned At Male Social History Additional DetailsCategorySocial InfoOptionsDetailsMigrated Social History Migrated Social History ALCOHOL: Does not give any significant history of alcohol usage, ProblemStatus: Active, , CAFFEINE: Consumes a minimal amount of caffeinated beverages daily, ProblemStatus: Active, , MARITAL STATUS: Single, ProblemStatus: Active Problems Problem Type SNOMED Code ICD Code Onset Dates Problem Status W/U Status Risk Notes Problem Acne (51779079) Acne NEC (706.1) (706.1) 12/16/2007 Acti ve confirmed ProblemAbsence of bladder continence (769957349)Absence of bladder continence (R32)04/30/2006ctiveconfirmedDescription:Urinary incontinenceProblemSevere mental retardation (Intelligence Quotient 20-34) (55764034)Severe mental retardation (318.1) (318.1)04/30/2006ctiveconfirmedProblemDysthymia (98759457) Disorder, dysthymic (300.4) (300.4)07/13/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 trisomy 21 syndrome (85779665)Down's syndrome (758.0) (758.0)04/30/2006ctive confirmedProblemResidual infantile autism (015114604)Autistic disorder, 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)07/13/2000ActiveconfirmedProblemIncontinence of feces (46354170)Alteration in bowel elimination: incontinence (R15.9)04/30/2006ctive confirmedDescription:Incontinence of feces Vital Signs Height-cm 162.56 cm 06/27/2025 Weight-kg80.74 kg06/27/20257703Kszlvc03 in06/27/20259721Youyus003 lbs06/27/2025BMI30.55 kg/m206/27/2025 Encounters Encounter Location Date Provider Diagnosis [facility] [address], [place] [id number] 06/27/2025 Anaya Sim [facility] [place], [place] [address]joaquin Sim Plan Of Treatment No Information Insurance Providers Payer Name Payer Address Payer Phone Subscriber Number Group Number Insured Name Patient Relationship to Insured Coverage Start Date Coverage End Date DMedicaid [address] [place], [place] [id number] Sarah Beckham - patient is the [id number] 2021 Medical (General) History Medical History History ICD Code Down syndrome HypothyroidismSurgical History Surgery Date(Month/Year) SURGICAL: No previous surgery, ProblemSt atus: Active, 2008-02-09
--- OUTSIDE RECORDS SUMMARY | 2025-10-20 07:40 | XMS_ITS | Patient Health Record ---
Author Organization [facility] Address [address] [place], [place] [address] [place], [place] [id number] Care Team Providers Care Sales Superintendent Name Role Phone Bruce Paige Primary Care Provider Billie Pascual Unavailable Unavailable Allergies Allergen (clinical drug ingredient) Drug/Non Drug Allergy documented on EMR Reaction Allergy Type Onset Date Status red dye (uncoded)UnknownAllergyActivecaffeineCaffeineUnknownDrug AllergyActive orange allergenic extractOrange (Diagnostic)UnknownDrug AllergyActive Reason For Referral No Information Medications Medication SIG (Take, Route, Frequency, Duration) Notes Start Date End Date Status Pantoprazole Sodium 40 MG 1 tablet Orally Once a day ActiveSEROquelActiveVitamin DActiveTrihexyphenidyl HClActiveOXcarbazepineActive carBAMazepineActiveFluocinonideActiveLactuloseActivePolyethylene GlycolActive FurosemideActiveLevothyroxine SodiumActiverisperiDONEActiveHydrocortisoneActive IbuprofenActive Social History Tobacco Use: Social History Observation Description Date Details (start date - stop date) Never Smoker NA - NA Alcohol Screen Question Answer Notes Did you have a drink containing alcohol in the p ast year? No Rbtocu4DhvwbsbqpjwgqwOuxieqkaQwbjrul Question Answer Notes Status nonsmoker Problems Problem Type SNOMED Code ICD Code Onset Dates Problem Status W/U Status Risk Notes Problem Hyperammonemia (0922425) Hyperammonemia ( E72.20) Bvburizzihmxvww64-pzgw-adv male with mental delay due to multiple comorbidities. [...] movements per day. I am requesting he comple te a Fibrosure and liver ultrasound to evaluate for advanced liver disease. Additional recommendations will be made as needed based on initial workup. Plan Of Treatment Pending Test Test Name Order Date FibroSURE* 12/30/2019 Insurance Providers Payer Name Payer Address Payer Phone Subscriber Number Group Number Insured Name Patient Relationship to Insured Coverage Start Date Coverage End Date [place] [address] [place] [address] [id number] Sarah Beckham - patient is the insuredREGENCY MERIDIAN [address] [place] [id number], [employer] - patient is the insured Medical (General) History Medical History History ICD Code hypothyroidism anemiarespiratory failureautismcongestive heart failureconstipationDown's syndromeobstructive sleep apneaseizuresSurgical History Surgery Date(Month/Year) lung surgery
[2025-10-20 08:14] LABS: Hematocrit 42.5 % (42.0-54.0); Hemoglobin 14.0 g/dL (14.0-18.0); Immature Granulocytes Abs Auto 0.02 10^3/uL (0.00-0.03); Immature Granulocytes Pct Auto 0.5 % (0.0-0.5); Lymphocytes Absolute Auto 1.4 10^3/uL (1.2-3.8); Mean Corpuscular HGB Conc 32.9 g/dL (29.9-35.2); Mean Corpuscular Hemoglobin 34.1 pg (25.9-34.0); Mean Corpuscular Volume 103.4 fL (80.0-94.0); Platelet Count 301 10^3/uL (150-450); Red Blood Count 4.11 10^6/uL (4.70-6.10); White Blood Count 3.8 10^3/uL (4.0-11.0)
[2025-10-20 09:19] LABS: Anion Gap 9.7; Blood Urea Nitrogen 15.0 mg/dL (7.0-18.0); Calcium 8.7 mg/dL (8.5-10.1); Carbon Dioxide 31.8 mmol/L (21.0-32.0); Chloride 109 mmol/L (98-107); Cholesterol 234 mg/dL (<=200); Estimated GFR (African America >60 (>=60 mL/min/1.73m^2); Estimated GFR (Non-African Ame >60 (>=60 mL/min/1.73m^2); Glucose 112 mg/dL (74-106); HDL Cholesterol 73 mg/dL (40-60); Potassium 4.5 mmol/L (3.5-5.1); Sodium 146 mmol/L (136-145); Triglycerides 43 mg/dL (<=150); VLDL CHOLESTEROL 8.6 mg/dL
[2025-10-21 06:08] LABS: Carbamazepine(Tegretol),S 4.6 ug/mL (4.0-12.0)
== END 2025-10-20 07:37 | disposition home or self-care (01) ==
LOC: LAB 07:37
PROVIDERS: PCP Nurse Practitioner; Visit Provider Nurse Practitioner
DX: F63.81 Intermittent explosive disorder (principal); F31.12 Bipolar disorder, current episode manic without psychotic features, moderate; Z79.899 Other long term (current) drug therapy; F73 Profound intellectual disabilities
CPT/HCPCS: 36415; 80048; 80061; 80156; 83036; 84146; 85025